=== PATIENT | female | born 1960 | race Caucasian/White ===

== ENCOUNTER 2019-03-02 15:49 | Emergency (ER) | payer OTHER, MEDICAID ==
[~2019-03-02] VITALS: Ht 170.2 cm; Wt 81.6 kg
[2019-03-02 15:49] VITALS: BP_SYST 128
--- NOTE | 2019-03-02 15:49 | NUR ---
Patient to ER bed 5 to gown for evaluation. Side rails up. Report given to KIRSTEN Simpson.
--- NOTE | 2019-03-02 15:50 | NUR ---
[facility]. Pt awake, alert, confused. Pt has been brought to [facility] for medical clearance to [facility]. Pt is ambulatory, and has purposeful movements but is extremely confused, and poses a fall risk due to unsteady gait. Pt denies chest pain, shortness of breath, nausea, vomiting, diarrhea, dizziness, blurred vision. Pt has no medical complaint a this time. Pt Resting in bed, and given blankets and pillow for comfort. Pt resting comfortably, VSS, will continue to monitor.
--- NOTE | 2019-03-02 15:50 | NUR ---
ER at bedside examining patient.
--- NOTE | 2019-03-02 16:00 | NUR ---
Phlebotomy bedside drawing blood labs via 23# butterfly catheter
[2019-03-02 16:26] LABS: BASOPHILS # (AUTO) 0.1 K/uL (0.0-0.2); BASOPHILS % (AUTO) 0.8 % (0.0-2.0); EOSINOPHILS # (AUTO) 0.2 K/uL (0.0-0.4); EOSINOPHILS % (AUTO) 2.3 % (0.0-4.0); HEMATOCRIT 27.3 % (36-48); HEMOGLOBIN 8.5 g/dL (12.0-16.0); LYMPHOCYTES # (AUTO) 2.1 K/uL (1.0-5.5); LYMPHOCYTES % (AUTO) 23.4 % (20.5-51.5); MEAN CORPUSCULAR HEMOGLOBIN 24 pg (27-31); MEAN CORPUSCULAR HGB CONC 31 % (32-36); MEAN CORPUSCULAR VOLUME 75 fL (79.0-98.0); MONOCYTES % (AUTO) 11.2 % (1.7-9.3); NEUTROPHILS # (AUTO) 5.5 K/uL (1.8-7.7); NEUTROPHILS % (AUTO) 62.3 % (40.0-70.0); PLATELET COUNT (AUTO) 266 K/uL (130-430); RED BLOOD CELL COUNT(AUTO) 3.63 MIL/uL (4.2-6.2); RED CELL DISTRIBUTION WIDTH 16.5 % (9.0-15.0); WHITE BLOOD COUNT (AUTO) 8.8 K/uL (4.8-10.8)
[2019-03-02 16:31] LABS: ANION GAP 7 (5-15); CALCIUM 8.7 mg/dL (8.4-11.0); CHLORIDE 105 mmol/L (98-107); CREATININE 1.32 mg/dL (0.55-1.30); GLUCOSE 224 mg/dL (70-99); POTASSIUM 4.2 mmol/L (3.5-5.1); SODIUM SERUM 140 mmol/L (136-145); UREA NITROGEN, BLOOD 27 mg/dL (8-21)
[2019-03-02 16:36] LABS: ALANINE AMINOTRANSFERASE 17 U/L (12-78); ALBUMIN 2.9 g/dL (3.4-4.8); ASPARTATE AMINOTRANSFERASE 15 U/L (10-37); GFR AFRICAN AMERICAN 54 mL/min (>90); TOTAL BILIRUBIN 0.2 mg/dL (0.0-1.0)
[2019-03-02 16:37] LABS: ALCOHOL, BLOOD < 3 mg/dL (<10)
--- NOTE | 2019-03-02 16:50 | NUR ---
MRSA Swab performed of Nares Bilat. pt tolerated procedure well. Sent to Lab
[2019-03-02 16:59] LABS: CHOLESTEROL 109 mg/dL (<200); HDL CHOLESTEROL 32 mg/dL (>55); LDL CHOLESTEROL 58 mg/dL (<100); TRIGLYCERIDES 109 mg/dL (30-150)
[2019-03-02 17:32] LABS: BILIRUBIN,URINE NEGATIVE (NEGATIVE); BLOOD, URINE NEGATIVE (NEGATIVE); CLARITY/URINE HAZY (CLEAR); COLOR,URINE YELLOW (YELLOW); GLUCOSE,URINE 3+ (NEGATIVE); KETONES,URINE NEGATIVE (NEGATIVE); LEUKOCYTE ESTERASE ,URINE 2+ (NEGATIVE); NITRITE, URINE NEGATIVE (NEGATIVE); PH,URINE 5.5 (5.0-8.0); PROTEIN URINE NEGATIVE (NEGATIVE); UROBILINOGEN,URINE 0.2 (0.2-1.0)
--- NOTE | 2019-03-02 17:42 | NUR ---
Patient resting quietly. No acute distress noted. will continue to monitor.
[2019-03-02 17:48] LABS: BACTERIA,URINE FEW /HPF (None Seen); MUCUS,URINE 1+ /LPF (None Seen); RBC,URINE 0-3 /HPF (0-3); WBC,URINE 50-80 /HPF (0-3); YEAST,URINE Few /HPF (None Seen)
[2019-03-02] MEDS ORDERED: cefTRIAXone 1 GM VIAL IM ONE (18:00)
--- NOTE | 2019-03-02 18:12 | NUR ---
RPatient to be transferred to [facility]. Is being transferred due to higher level of care. Receiving facility has accepting physician and available space. ER physician has signed transfer form. Patient or responsible constitution party has agreed to transfer and signed form. Patient belongings inventoried and will be sent with patient. Copy of nursing notes, lab reports, EKG, Physicians Orders and X-rays to be sent with patient. Report called to KIRSTEN WILLIAMSON at receiving facility. Receiving physician is DR. DANIEL. [facility] service has been called for transfer. ETA is 1900
[2019-03-02] MEDS ORDERED: LIDOCAINE 1%, 20 ML MDV 20 ML ONE (19:17)
--- NOTE | 2019-03-02 19:23 | NUR ---
Pt resting quietly and comfortably in bed. Pt given additional warm blanket. Pt Vss, will continue to monitor.
[2019-03-02 20:00] VITALS: BP_SYST 128
--- NOTE | 2019-03-02 20:00 | NUR ---
Patient to be transferred to [facility]. Is being transferred due to higher level of care. Receiving facility has accepting physician and available space. ER physician has signed transfer form. Patient or responsible libertarian has agreed to transfer and signed form. Patient belongings inventoried and will be sent with patient. Copy of nursing notes, lab reports, EKG, Physicians Orders and X-rays to be sent with patient. Report called to CN at receiving facility. Receiving physician is Dante. [facility] ambulance service has arrived to transport.
== END 2019-03-02 20:00 ==
LOC: SED 15:49
DX: Z02.89 Encounter for other administrative examinations (principal); N39.0 Urinary tract infection, site not specified; E11.9 Type 2 diabetes mellitus without complications; F31.9 Bipolar disorder, unspecified
CPT/HCPCS: 36415; 80053; 80061; 81000; 83036; 85025; 87086; 96372; 99285; G0482; J0696; J2001; 99283

== ENCOUNTER 2019-04-09 15:27 | Outpatient (CLI) | payer OTHER, MEDICAID | END 2019-04-09 19:28 | disposition home or self-care (01) | LOC: SLB 15:27 | PROVIDERS: ATTEND Psychiatry & Neurology Psychiatry | DX: F25.0 Schizoaffective disorder, bipolar type (principal); F03.90 Unspecified dementia, unspecified severity, without behavioral disturbance, psychotic disturbance, mood disturbance, and anxiety; E78.00 Pure hypercholesterolemia, unspecified; R45.83 Excessive crying of child, adolescent or adult; R56.9 Unspecified convulsions; T14.8XXA Other injury of unspecified body region, initial encounter; F32.9 Major depressive disorder, single episode, unspecified; R41.0 Disorientation, unspecified; W50.4XXA Accidental scratch by another person, initial encounter; Y93.9 Activity, unspecified; Y92.89 Other specified places as the place of occurrence of the external cause; Y99.8 Other external cause status | CPT/HCPCS: 36415; 82947-TC ==

== ENCOUNTER 2019-07-12 15:42 | Inpatient (IN) | payer OTHER, MEDICAID ==
[~2019-07-12] VITALS: Ht 165.1 cm; Wt 69.9 kg
[2019-07-12 15:50] VITALS: BP_SYST 122
[2019-07-12] MEDS ORDERED: ZIPRASIDONE HCL 20 MG CAPSULE (GEODON) PO ONE (16:00)
[2019-07-12] MEDS ORDERED: LEVA1.2526 INH (16:00)
[2019-07-12] MEDS ORDERED: LORazepam 2 MG/ML VIAL IM ONE (16:00)
[2019-07-12] MEDS ORDERED: LEVE500T53 GT (16:00)
[2019-07-12] MEDS ORDERED: DIPHENHYDRAMINE INJ 50 MG/ML VIAL IM ONE (16:00)
[2019-07-12] MEDS ORDERED: ACET325T53 GT (16:00)
[2019-07-12] MEDS ORDERED: ONDA4TAB5 GT (16:00)
[2019-07-12 16:28] LABS: HEMATOCRIT 34.9 % (36-48); HEMOGLOBIN 10.9 g/dL (12.0-16.0); MEAN CORPUSCULAR HEMOGLOBIN 26 pg (27-31); MEAN CORPUSCULAR HGB CONC 31 % (32-36); MEAN CORPUSCULAR VOLUME 83 fL (79.0-98.0); RED BLOOD CELL COUNT(AUTO) 4.19 MIL/uL (4.2-6.2); WHITE BLOOD COUNT (AUTO) 8.3 K/uL (4.8-10.8)
[2019-07-12 16:29] LABS: BASOPHILS % (AUTO) 0.2 % (0.0-2.0); EOSINOPHILS # (AUTO) 0.1 K/uL (0.0-0.4); EOSINOPHILS % (AUTO) 1.8 % (0.0-4.0); LYMPHOCYTES # (AUTO) 3.2 K/uL (1.0-5.5); LYMPHOCYTES % (AUTO) 38.1 % (20.5-51.5); MONOCYTES # (AUTO) 0.9 K/uL (0.0-1.0); MONOCYTES % (AUTO) 11.1 % (1.7-9.3); NEUTROPHILS # (AUTO) 4.1 K/uL (1.8-7.7); NEUTROPHILS % (AUTO) 48.8 % (40.0-70.0); PLATELET COUNT (AUTO) 210 K/uL (130-430); RED CELL DISTRIBUTION WIDTH 22.5 % (9.0-15.0)
[2019-07-12 16:44] LABS: ANION GAP 6 (5-15); CALCIUM 9.1 mg/dL (8.4-11.0); CHLORIDE 105 mmol/L (98-107); CREATININE 1.64 mg/dL (0.55-1.30); GLUCOSE 207 mg/dL (70-99); SODIUM SERUM 143 mmol/L (136-145); UREA NITROGEN, BLOOD 23 mg/dL (8-21)
[2019-07-12 16:50] LABS: GFR AFRICAN AMERICAN 42 mL/min (>90)
[2019-07-12 16:51] LABS: POTASSIUM 5.6 mmol/L (3.5-5.1)
[2019-07-12 16:52] LABS: ALANINE AMINOTRANSFERASE 25 U/L (12-78); ALBUMIN 3.4 g/dL (3.4-4.8); ASPARTATE AMINOTRANSFERASE 23 U/L (10-37); TOTAL BILIRUBIN 0.2 mg/dL (0.0-1.0)
[2019-07-12 17:48] LABS: BILIRUBIN,URINE NEGATIVE (NEGATIVE); BLOOD, URINE NEGATIVE (NEGATIVE); CLARITY/URINE CLEAR (CLEAR); COLOR,URINE YELLOW (YELLOW); GLUCOSE,URINE NEGATIVE (NEGATIVE); KETONES,URINE NEGATIVE (NEGATIVE); LEUKOCYTE ESTERASE ,URINE TRACE (NEGATIVE); NITRITE, URINE NEGATIVE (NEGATIVE); PROTEIN URINE NEGATIVE (NEGATIVE); UROBILINOGEN,URINE 0.2 (0.2-1.0)
[2019-07-12 17:57] LABS: RBC,URINE NONE SEEN /HPF (0-3)
[2019-07-12 17:58] LABS: BACTERIA,URINE FEW /HPF (None Seen); MUCUS,URINE None Seen /LPF (None Seen)
[2019-07-12] MEDS ORDERED: cefTRIAXone 1 GM VIAL IM ONE (18:30)
[2019-07-12] MEDS ORDERED: LEVOFLOXACIN 500 MG/D5W 100 ML IV ONE (18:45)
[2019-07-12] MEDS ORDERED: ASA81 GT (19:21)
[2019-07-12] MEDS ORDERED: ACET-2165 GT (19:27)
[2019-07-12] MEDS ORDERED: FAMO40OR4 GT (19:27)
[2019-07-12] MEDS ORDERED: APIX5TAB GT (19:27)
[2019-07-12] MEDS ORDERED: METO25TA6 GT (19:27)
[2019-07-12] MEDS ORDERED: ATOR20TA64 GT (19:27)
[2019-07-12] MEDS ORDERED: SERT100T GT (19:30)
[2019-07-12] MEDS ORDERED: LEVE250T2 PO (19:30)
[2019-07-12] MEDS ORDERED: INSU100V9 SQ (19:30)
[2019-07-12] MEDS ORDERED: RISP1TAB GT (19:30)
[2019-07-12 20:21] VITALS: BP_SYST 137
[2019-07-12] MEDS ORDERED: guaiFENesin 200 MG/10 ML UDC PO PRN (21:15)
[2019-07-12] MEDS ORDERED: cloNIDine HCL 0.1 MG TABLET PO PRN (21:15)
[2019-07-12] MEDS ORDERED: ONDANSETRON HCL 4 MG/2 ML VIAL IVP PRN (21:15)
[2019-07-12] MEDS ORDERED: IPRATROPIUM BROM 0.5 MG/2.5 ML VIAL.NEB (ATROVENT) INH PRN (21:15)
[2019-07-12] MEDS ORDERED: ALBUTEROL SULFATE 0.083% 2.5 MG/3 ML VIAL.NEB INH PRN (21:15)
[2019-07-12] MEDS ORDERED: NITROGLYCERIN 0.4 MG TAB.SUBL SL PRN (21:15)
[2019-07-12] MEDS ORDERED: CEFEPIME 1 GM in D5W 50 ML IV ONE (22:00)
[2019-07-13 00:01] VITALS: BP_SYST 136
[2019-07-13] MEDS ORDERED: CEFEPIME 1 GM/VIAL (MAXIPIME) ONE (00:35)
[2019-07-13] MEDS: 0.45% NACL 1,000 ML IV SCH ×3 (00:52→23:24)
[2019-07-13] MEDS: LORazepam 2 MG/ML VIAL IVP PRN ×3 (05:24→20:12)
[2019-07-13 08:00] VITALS: BP_SYST 115
[2019-07-13 08:05] LABS: ALBUMIN 2.7 g/dL (3.4-4.8); CALCIUM 8.5 mg/dL (8.4-11.0); CREATININE 0.9 mg/dL (0.55-1.30); TOTAL BILIRUBIN 0.3 mg/dL (0.0-1.0)
[2019-07-13] MEDS: INSULIN LISPRO SLIDING SCALE 100 UNITS/ML VIAL (humaLOG) SUBCUT PRN ×2 (11:28→16:53)
[2019-07-13] MEDS: SERTRALINE HCL 50 MG TABLET GT SCH ×2 (11:54→20:01)
[2019-07-13] MEDS: ASPIRIN 81 MG TAB.CHEW GT SCH (11:54)
[2019-07-13] MEDS: levETIRAcetam 500 MG TABLET PO SCH ×2 (11:54→20:01)
[2019-07-13] MEDS: ATORVASTATIN 20 MG TABLET GT SCH (11:54)
[2019-07-13] MEDS: METOPROLOL TARTRATE 25 MG TABLET GT SCH ×2 (11:55→20:04)
[2019-07-13] MEDS: risperiDONE 1 MG TABLET (RisperDAL) GT SCH ×2 (11:56→20:00)
[2019-07-13] MEDS: ACETAMINOPHEN 325 MG TABLET GT SCH (11:56)
[2019-07-13] MEDS: CEFEPIME 1 GM in D5W 50 ML IV SCH ×2 (11:59→22:07)
[2019-07-13] MEDS ORDERED: VANCOMYCIN HCL 1 GM/NS PREMIX 250 ML IV ONE (12:00)
[2019-07-13 12:24] VITALS: BP_SYST 110
[2019-07-13] MEDS: VANCOMYCIN HCL 1,500 MG in NS 250 ML IV SCH (14:15)
[2019-07-13 16:23] VITALS: BP_SYST 125
[2019-07-13] MEDS: RIVAROXABAN 10 MG TABLET PO SCH (17:09)
[2019-07-13 20:00] VITALS: BP_SYST 127
[2019-07-13] MEDS ORDERED: risperiDONE 1 MG TABLET (RisperDAL) GT SCH (21:00)
[2019-07-13 22:21] VITALS: BP_SYST 127
[2019-07-14] MEDS: LORazepam 2 MG/ML VIAL IVP PRN ×4 (04:24→22:25)
[2019-07-14 07:08] LABS: BASOPHILS % (AUTO) 0.1 % (0.0-2.0); EOSINOPHILS # (AUTO) 0.3 K/uL (0.0-0.4); EOSINOPHILS % (AUTO) 5.1 % (0.0-4.0); HEMATOCRIT 37.2 % (36-48); HEMOGLOBIN 11.8 g/dL (12.0-16.0); LYMPHOCYTES # (AUTO) 1.2 K/uL (1.0-5.5); LYMPHOCYTES % (AUTO) 22.3 % (20.5-51.5); MEAN CORPUSCULAR HEMOGLOBIN 27 pg (27-31); MEAN CORPUSCULAR HGB CONC 32 % (32-36); MEAN CORPUSCULAR VOLUME 84 fL (79.0-98.0); MONOCYTES # (AUTO) 0.5 K/uL (0.0-1.0); MONOCYTES % (AUTO) 9.9 % (1.7-9.3); NEUTROPHILS # (AUTO) 3.4 K/uL (1.8-7.7); NEUTROPHILS % (AUTO) 62.6 % (40.0-70.0); PLATELET COUNT (AUTO) 175 K/uL (130-430); RED BLOOD CELL COUNT(AUTO) 4.45 MIL/uL (4.2-6.2); RED CELL DISTRIBUTION WIDTH 22.4 % (9.0-15.0); WHITE BLOOD COUNT (AUTO) 5.5 K/uL (4.8-10.8)
[2019-07-14 07:17] LABS: ALBUMIN 2.9 g/dL (3.4-4.8); CALCIUM 8.9 mg/dL (8.4-11.0); CREATININE 0.94 mg/dL (0.55-1.30); TOTAL BILIRUBIN 0.4 mg/dL (0.0-1.0)
[2019-07-14 07:25] VITALS: BP_SYST 109
[2019-07-14] MEDS: ASPIRIN 81 MG TAB.CHEW GT SCH (08:28)
[2019-07-14] MEDS: SERTRALINE HCL 50 MG TABLET GT SCH ×2 (08:29→20:55)
[2019-07-14] MEDS: risperiDONE 1 MG TABLET (RisperDAL) GT SCH ×2 (08:29→20:56)
[2019-07-14] MEDS: ATORVASTATIN 20 MG TABLET GT SCH (08:30)
[2019-07-14] MEDS: METOPROLOL TARTRATE 25 MG TABLET GT SCH ×2 (08:30→20:56)
[2019-07-14] MEDS: levETIRAcetam 500 MG TABLET PO SCH ×2 (08:31→20:57)
[2019-07-14] MEDS: ACETAMINOPHEN 325 MG TABLET GT SCH (08:32)
[2019-07-14] MEDS: CEFEPIME 1 GM in D5W 50 ML IV SCH ×2 (10:53→20:55)
[2019-07-14 11:18] VITALS: BP_SYST 95
[2019-07-14] MEDS: INSULIN LISPRO SLIDING SCALE 100 UNITS/ML VIAL (humaLOG) SUBCUT PRN ×3 (12:12→20:57)
[2019-07-14] MEDS: VANCOMYCIN HCL 1,500 MG in NS 250 ML IV SCH (13:07)
[2019-07-14] MEDS: MUPIROCIN 2% TOPICAL OINTMENT 22 GM TP SCH ×2 (15:59→20:58)
[2019-07-14 16:16] VITALS: BP_SYST 103
[2019-07-14] MEDS: RIVAROXABAN 10 MG TABLET PO SCH (17:38)
[2019-07-14 20:00] VITALS: BP_SYST 123
[2019-07-15] VITALS: BP_SYST 117
[2019-07-15] MEDS: 0.45% NACL 1,000 ML IV SCH (02:03)
[2019-07-15] MEDS: INSULIN LISPRO SLIDING SCALE 100 UNITS/ML VIAL (humaLOG) SUBCUT PRN ×2 (05:45→11:08)
[2019-07-15] MEDS: LORazepam 2 MG/ML VIAL IVP PRN ×2 (05:46→17:34)
[2019-07-15 07:50] VITALS: BP_SYST 124
[2019-07-15] MEDS: ASPIRIN 81 MG TAB.CHEW GT SCH (08:14)
[2019-07-15] MEDS: METOPROLOL TARTRATE 25 MG TABLET GT SCH (08:14)
[2019-07-15] MEDS: ATORVASTATIN 20 MG TABLET GT SCH (08:15)
[2019-07-15] MEDS: risperiDONE 1 MG TABLET (RisperDAL) GT SCH (08:15)
[2019-07-15] MEDS: levETIRAcetam 500 MG TABLET PO SCH (08:16)
[2019-07-15] MEDS: MUPIROCIN 2% TOPICAL OINTMENT 22 GM TP SCH (08:16)
[2019-07-15] MEDS: ACETAMINOPHEN 325 MG TABLET GT SCH (08:16)
[2019-07-15] MEDS: SERTRALINE HCL 50 MG TABLET GT SCH (08:40)
[2019-07-15 08:49] VITALS: BP_SYST 124
[2019-07-15] MEDS: CEFEPIME 1 GM in D5W 50 ML IV SCH (09:48)
[2019-07-15 12:00] VITALS: BP_SYST 101
[2019-07-15] MEDS ORDERED: DEXTROSE 50%-WATER 50 ML DISP.SYRIN IVP PRN (13:45)
[2019-07-15] MEDS ORDERED: D5W 1,000 ML IV PRN (13:45)
[2019-07-15] MEDS ORDERED: GLUCOSE 15 GM GEL (in 37.5 GM TUBE) PO PRN (13:45)
[2019-07-15] MEDS: VANCOMYCIN HCL 1,500 MG in NS 250 ML IV SCH (14:16)
[2019-07-15 14:31] VITALS: BP_SYST 101
[2019-07-15 16:00] VITALS: BP_SYST 133
[2019-07-15] MEDS ORDERED: PIPERACILLIN/TAZO 4.5 GM in D5W 100 ML IV SCH (18:00)
== END 2019-07-15 18:50 | DRG 690 ==
LOC: SED 15:42 → SMU 18:44 → STU 07-13 10:54
PROVIDERS: ADMIT Internal Medicine; ATTEND Internal Medicine
DX: N39.0 Urinary tract infection, site not specified (principal); R78.81 Bacteremia; Z16.12 Extended spectrum beta lactamase (ESBL) resistance; E11.9 Type 2 diabetes mellitus without complications; D64.9 Anemia, unspecified; F03.90 Unspecified dementia, unspecified severity, without behavioral disturbance, psychotic disturbance, mood disturbance, and anxiety; E87.8 Other disorders of electrolyte and fluid balance, not elsewhere classified; B96.20 Unspecified Escherichia coli [E. coli] as the cause of diseases classified elsewhere; F31.9 Bipolar disorder, unspecified; R56.9 Unspecified convulsions; R13.10 Dysphagia, unspecified; E87.5 Hyperkalemia; E78.00 Pure hypercholesterolemia, unspecified; B96.89 Other specified bacterial agents as the cause of diseases classified elsewhere; K21.9 Gastro-esophageal reflux disease without esophagitis; I10 Essential (primary) hypertension; F25.9 Schizoaffective disorder, unspecified; Z95.0 Presence of cardiac pacemaker; Z79.01 Long term (current) use of anticoagulants; Z79.899 Other long term (current) drug therapy; Z79.82 Long term (current) use of aspirin
CPT/HCPCS: 36415; 71045; 80053; 80202-TC; 81000-TC; 82962; 83880; 84484; 85025; 86710; 87040-TC; 87081; 87086; 87186-TC; 96365; 96372; 99285; G0378; J0692; J1200; J1956; J2060; J2543; J3370; J7030; J7050; J7060

== ENCOUNTER 2020-11-01 12:51 | Emergency (ER) | payer OTHER, MEDICAID ==
[~2020-11-01] VITALS: Ht 157.5 cm; Wt 47.6 kg
[~2020-11-01 12:51] MED LIST: ACET325T GT; APIX5TAB GT; ASA81 GT; ATOR20TA64 GT; FAMO40OR4 GT; INSU100V9 SQ; LEVE250T2 PO; METO25TA6 GT; RISP1TAB45 GT; SERT100T GT
[2020-11-01] MEDS: DIPH-TET-PERTUS Vaccine 0.5 ML VIAL (ADACEL) I.M. ONE (13:07)
[2020-11-01 13:09] VITALS: BP_SYST 118
[2020-11-01 13:55] LABS: HEMOGLOBIN 11.4 g/dL (12.0-16.0); RED CELL DISTRIBUTION WIDTH 17.8 % (9.0-15.0)
[2020-11-01 14:00] LABS: BASOPHILS # (AUTO) 0.1 K/uL (0.0-0.2); BASOPHILS % (AUTO) 0.8 % (0.0-2.0); EOSINOPHILS # (AUTO) 0.3 K/uL (0.0-0.4); EOSINOPHILS % (AUTO) 4.9 % (0.0-4.0); HEMATOCRIT 35.1 % (36-48); LYMPHOCYTES % (AUTO) 28.2 % (20.5-51.5); MEAN CORPUSCULAR HEMOGLOBIN 28 pg (27-31); MEAN CORPUSCULAR HGB CONC 33 % (32-36); MEAN CORPUSCULAR VOLUME 86 fL (79.0-98.0); MONOCYTES # (AUTO) 0.8 K/uL (0.0-1.0); MONOCYTES % (AUTO) 12.1 % (1.7-9.3); NEUTROPHILS # (AUTO) 3.8 K/uL (1.8-7.7); PLATELET COUNT (AUTO) 236 K/uL (130-430); RED BLOOD CELL COUNT(AUTO) 4.06 MIL/uL (4.2-6.2)
[2020-11-01 14:08] LABS: CREATININE 0.84 mg/dL (0.55-1.30); POTASSIUM 4.7 mmol/L (3.5-5.1)
[2020-11-01 14:09] LABS: PROTHROMBIN TIME 10.5 SECS (9.5-12.5)
[2020-11-01] MEDS ORDERED: VALP500S4 PO (15:04)
[2020-11-01] MEDS ORDERED: METF1000 PO (15:04)
[2020-11-01 18:14] VITALS: BP_SYST 104
== END 2020-11-01 18:20 | disposition home or self-care (01) ==
LOC: SED 12:51
DX: S01.81XA Laceration without foreign body of other part of head, initial encounter (principal); S09.90XA Unspecified injury of head, initial encounter; F03.90 Unspecified dementia, unspecified severity, without behavioral disturbance, psychotic disturbance, mood disturbance, and anxiety; E11.9 Type 2 diabetes mellitus without complications; I10 Essential (primary) hypertension; K21.9 Gastro-esophageal reflux disease without esophagitis; Z79.84 Long term (current) use of oral hypoglycemic drugs; Z79.899 Other long term (current) drug therapy; W06.XXXA Fall from bed, initial encounter; Y93.89 Activity, other specified; Y92.89 Other specified places as the place of occurrence of the external cause; Y99.8 Other external cause status
CPT/HCPCS: 36415; 70450-TC; 71045; 72125-TC; 73521; 76376; 80048; 85025; 85610-TC; 90715; 93005; 99285

== ENCOUNTER 2020-11-03 14:56 | Inpatient (IN) | payer OTHER, MEDICAID, SELFPAY ==
[~2020-11-03] VITALS: Ht 165.1 cm; Wt 43.5 kg
[2020-11-03] VITALS (8 sets, daily range): BP systolic 93–156
[~2020-11-03 14:56] MED LIST changes: +METF1000 PO; +VALP500S4 PO
--- NOTE | 2020-11-03 15:00 | NUR ---
Patient to ER bed 1 to gown for evaluation. Side rails up.
--- NOTE | 2020-11-03 15:10 | NUR ---
PT PRESENTING WITH SUTURED LACERATION ABOVE RIGHT EYEBROW FROM PREVIOUS FALL. EDSGES APPROXIAMTED. NO SIGNS OF INFECTION NOTED
--- NOTE | 2020-11-03 15:10 | NUR ---
PT BIB AMBULANCE FROM [facility] WITH REPORT OF TAHCYCARDIA AND RESPIRATORY DISTRESS. GCS 5 UNRESPONSIVE. VITAL SIGNS STABLE TACHYPNIC RATE 40 OXYGEN SATURATION 99% 4 L NC. G-TUBE IN PLACE WITH ABDOMINAL BINDER. PACEMAKER PRESENT. PT GOWNED AND ATTACHED TO AUTO BUMPER MECHANIC.
--- NOTE | 2020-11-03 15:15 | NUR ---
ER at bedside examining patient.
--- NOTE | 2020-11-03 15:21 | NUR ---
2MG NARCAN GIVEN AND NO CHANGE IN P CONDITION
[2020-11-03] MEDS ORDERED: NALOXONE HCL 2 MG/2 ML SYR ONE (15:22)
--- NOTE | 2020-11-03 15:22 | NUR ---
X-RAY AT BEDSIDE
--- NOTE | 2020-11-03 15:25 | NUR ---
Patient transported to radiology via GURNEY, accompanied by STAFF.
[2020-11-03] MEDS ORDERED: NALOXONE HCL 2 MG/2 ML SYR IVP ONE (15:30)
[2020-11-03 15:36] LABS: BASOPHILS % (AUTO) 0.1 % (0.0-2.0); EOSINOPHILS % (AUTO) 0.1 % (0.0-4.0); HEMATOCRIT 38.2 % (36-48); HEMOGLOBIN 12.1 g/dL (12.0-16.0); LYMPHOCYTES # (AUTO) 0.9 K/uL (1.0-5.5); LYMPHOCYTES % (AUTO) 5.6 % (20.5-51.5); MEAN CORPUSCULAR HEMOGLOBIN 27 pg (27-31); MEAN CORPUSCULAR HGB CONC 32 % (32-36); MEAN CORPUSCULAR VOLUME 86 fL (79.0-98.0); MONOCYTES # (AUTO) 1.1 K/uL (0.0-1.0); MONOCYTES % (AUTO) 6.4 % (1.7-9.3); NEUTROPHILS # (AUTO) 14.5 K/uL (1.8-7.7); NEUTROPHILS % (AUTO) 87.8 % (40.0-70.0); PLATELET COUNT (AUTO) 264 K/uL (130-430); RED BLOOD CELL COUNT(AUTO) 4.43 MIL/uL (4.2-6.2); RED CELL DISTRIBUTION WIDTH 17.6 % (9.0-15.0); WHITE BLOOD COUNT (AUTO) 16.5 K/uL (4.8-10.8)
--- NOTE | 2020-11-03 15:44 | NUR ---
BACK FROM CT AND REATTACHED TO MONITORS
[2020-11-03 15:47] LABS: PROTHROMBIN TIME 10.4 SECS (9.5-12.5)
[2020-11-03 15:48] LABS: ANION GAP 9 (5-15); CALCIUM 9.3 mg/dL (8.4-11.0); CHLORIDE 99 mmol/L (98-107); CREATININE 0.87 mg/dL (0.55-1.30); GLUCOSE 177 mg/dL (70-99); POTASSIUM 4.7 mmol/L (3.5-5.1); SODIUM SERUM 139 mmol/L (136-145); UREA NITROGEN, BLOOD 30 mg/dL (8-21)
--- NOTE | 2020-11-03 16:00 | NUR ---
ELEAZAR AND MRSA COLLECTED AND SENT TO LAB
--- NOTE | 2020-11-03 16:00 | NUR ---
COVID SWAB AND MRSA SWAB COLLECTED AND SENT TO LAB FOR ANALYSIS.
[2020-11-03 16:02] LABS: ALANINE AMINOTRANSFERASE 72 U/L (12-78); ALBUMIN 3.2 g/dL (3.4-4.8); ASPARTATE AMINOTRANSFERASE 41 U/L (10-37); TOTAL BILIRUBIN 0.3 mg/dL (0.0-1.0)
[2020-11-03 16:09] LABS: ALCOHOL, BLOOD < 3 mg/dL (<10); GFR AFRICAN AMERICAN 86 mL/min (>90)
[2020-11-03 16:10] LABS: ACETAMINOPHEN < 1 ug/mL (1-30)
--- NOTE | 2020-11-03 16:10 | NUR ---
URINE COLLECTED AND BROUGHT TO LAB. TSANG CATHETER INSERTED 16FRENCH. PT TOLERATED WELL.
--- NOTE | 2020-11-03 16:11 | NUR ---
300CC CLEAR YELLOW URINE DRAINING FROM TSANG CATHETER.
[2020-11-03] MEDS ORDERED: VANCOMYCIN HCL 1,000 MG in NS 250 ML IV ONE (16:15)
[2020-11-03] MEDS ORDERED: PIPERACILLIN/TAZOBACTAM 2.25 GM in NS 50 ML IV ONE (16:15)
[2020-11-03] MEDS ORDERED: NACL 0.9% 1,000 ML IV ONE (16:15)
[2020-11-03] MEDS ORDERED: PIPERACILLIN/TAZOBACTAM 2.25 GM VIAL IV ONE (16:21)
[2020-11-03] MEDS ORDERED: VANCOMYCIN HCL 1000 MG/VIAL IV ONE (16:21)
[2020-11-03] MEDS ORDERED: FLUMAZENIL 0.1 MG/ML IVP ONE ×2 (16:37→16:45)
--- NOTE | 2020-11-03 16:43 | NUR ---
FLUMAZENIL GIVEN. NO CHANGE IN PT CONDITION
[2020-11-03 16:45] LABS: BILIRUBIN,URINE NEGATIVE (NEGATIVE); BLOOD, URINE NEGATIVE (NEGATIVE); CLARITY/URINE CLEAR (CLEAR); COLOR,URINE YELLOW (YELLOW); GLUCOSE,URINE NEGATIVE (NEGATIVE); KETONES,URINE TRACE (NEGATIVE); NITRITE, URINE NEGATIVE (NEGATIVE); PH,URINE 8.5 (5.0-8.0); PROTEIN URINE NEGATIVE (NEGATIVE)
[2020-11-03 16:46] LABS: C-REACTIVE PROTEIN QUANT 4.7 mg/dL (0-0.5)
[2020-11-03 16:51] LABS: LEUKOCYTE ESTERASE ,URINE 1+ (NEGATIVE)
[2020-11-03 16:52] LABS: BACTERIA,URINE FEW /HPF (None Seen); MUCUS,URINE None Seen /LPF (None Seen); RBC,URINE NONE SEEN /HPF (0-3)
[2020-11-03 16:56] LABS: BARBITURATE, URINE NEGATIVE (NEG <=200); BENZODIAZEPINE, URINE POSITIVE (NEG <=150); CANNABINOID, URINE NEGATIVE (NEG <=50); COCAINE, URINE NEGATIVE (NEG <=150); METHAMPHETAMINES SCREEN,URINE NEGATIVE (NEG <=500); OPIATE, URINE NEGATIVE (NEG <=100); PHENCYCLIDINE SCREEN,URINE NEGATIVE (NEG <=25); UR TRICYCLIC ANTIDEPRESSANTS POSITIVE (NEG <=300); URINE AMPHETAMINE NEGATIVE (NEG <=500); URINE METHADONE NEGATIVE (NEG <=200); URINE OXYCODONE SCREEN NEGATIVE (NEG <=100); URINE PROPOXYPHENE SCREEN NEGATIVE (NEG <=300)
[2020-11-03 17:14] LABS: VALPROIC ACID 19 ug/mL (50-100)
[2020-11-03 17:19] LABS: ACETONE, SERUM NEGATIVE (NEGATIVE)
--- NOTE | 2020-11-03 17:22 | NUR ---
called [facility] to verify pt identity. confirmed with Jackie with and Name. Jackie verified they sent the pt Soif Schwartz.
--- NOTE | 2020-11-03 17:40 | NUR ---
ADMISSION ORDERS RECEIVED FROM DR. WALKER. PT TO BE ADMITTED TO ICU FOR ALTERED MENTAL STATUS. BED ORDERED FROM ICU. PT TO TRANSFER AFTER SHIFT CHANGE.
--- NOTE | 2020-11-03 17:44 | NUR ---
Medication reconciliation completed with information provided by Myles CURTIS. Any prior medication reconciliation on file was reviewed and corrected.
--- NOTE | 2020-11-03 19:17 | NUR ---
PT RESTING IN RTUCSON ATTACHED TO NON DESTRUCTIVE TESTING SCIENTIST VSS NI DISTRESS NOTED. NO CHANGE IN PT CONDITION
[2020-11-03] MEDS: NACL 0.9% 1,000 ML IV SCH (19:26)
[2020-11-03] MEDS ORDERED: VECURONIUM BROMIDE 10 MG/VIAL (NORCURON) IVP ONE (20:00)
--- NOTE | 2020-11-03 20:08 | NUR ---
DR. JONES AND Fern. AT BEDSIDE FOR INTUBATION. PT HAS TACHYPNEA WITH A RATE OF 50"S TO 60"S WITH NO GAG REFLEX. V/S 116/74, HR 93, RESPIRATORY RATE 57, SPO2 99%. VECURONIUM 10MG IV ADMINISTERED PER DR. JONES. A 7.0 ET TUBE PLACED BY MD, PLACEMENT VERIFIED WITH COLOR CHANGE IN CAPNOGRAPHY AND EQUAL BREATH SOUNDS BILATERALLY. V/S 147/91, 98 HR, 17 RR, 98% POST INTUBATION. ET TUBE 22 AT THE LIP. PT PLACE ON AC 16, TV 350, FIO2 100%, AND PEEP OF 5. POST INTUBATION XRAY ORDERED.
[2020-11-03] MEDS ORDERED: ATROPINE SULFATE 1 MG/10 ML SYRINGE IVP ONE (20:19)
[2020-11-03] MEDS ORDERED: ATROPINE SULFATE 0.4 MG/ML VIAL ONE (20:19)
--- NOTE | 2020-11-03 20:23 | NUR ---
NG TUBE 16F INSERTED INTO LEFT NARE. PLACEMENT VERIFIED BY AUSCULTATION AND ASPIRATION OF STOMACH CONTENTS.
--- NOTE | 2020-11-03 20:25 | NUR ---
PORTABLE CXR DONE AT BEDSIDE.
--- NOTE | 2020-11-03 20:31 | NUR ---
Patient will be admitted to care of DR. WALKER. Admitted to ICU unit. Will go to room #1. Belongings list completed. Complete and up to date summary report printed. SBAR report to be given at bedside with opportunity for questions.
--- NOTE | 2020-11-03 20:32 | NUR ---
Transfer to ICU via ACLS protocol. Licensed nurse present. IV present no signs or symptoms of infiltration. R.T. transported with RN's.
--- NOTE | 2020-11-03 20:40 | NUR ---
ICU ADMIT Patient is on vent, tolerating current vent settings. IV fluids infusing to left forearm, no signs of infiltration. Zacarias catheter in place and draining to gravity. Safety precautions in place, call light within reach. Will continue to monitor.
--- NOTE | 2020-11-03 20:47 | NUR ---
ASSISTED INTUBATION BY MD JONES. 2007 INTUBATION WITH ETT 7.0/22 AT LIP LINE. CO2 DETECTOR CHANGED COLLOR YELLOW AND BILATERAL CHEST RISE,BREAST SOUNDS NOTICED. 2019 PT ON VENT SETTINGS WITH AC16, VT350, PEEP +5, FIO2 100%. SPO2 100%, HR 108.
--- NOTE | 2020-11-03 21:07 | NUR ---
TITRATED FIO2 TO 60% PER ABG RESULT, PO2 152.2 mmHg. SPO2 96%, HR 97.
--- NOTE | 2020-11-03 21:35 | NUR ---
DR. HOLLY GARCIA PAGED FOR NEW CONSULT/ORDERS. WILL AWAIT MD CALL BACK.
--- NOTE | 2020-11-03 21:37 | NUR ---
Spoke to Dr. Armida MD made aware of new ICU admit and current vent settings/post intubation ABG's. Orders given to start Diprivan, Levophed, 500 ml bolus if needed. Will input orders.
[2020-11-03] MEDS ORDERED: NS 500 ML IV ONE (21:45)
[2020-11-03] MEDS ORDERED: NOREPINEPHRINE BITARTRATE 4 MG in NS 246 ML IV PRN (21:45)
--- NOTE | 2020-11-03 21:55 | NUR ---
CONSULTATION PAGED/CALLED Reason for Consultation: PNA Person Who was Notified: LIZZIE Consulting Physician: DR. CHATMAN Associate Loan Officer Specialty: ID Ordering Physician: DR. WALKER
[2020-11-03] MEDS ORDERED: PIPERACILLIN/TAZOBACTAM 3.375 GM/VIAL (ZOSYN) IV ONE (22:00)
[2020-11-03] MEDS: IPRATROPIUM/ALBUTEROL SULFATE 3 ML AMPUL.NEB (DUONEB) INH SCH (23:32)
[2020-11-04] VITALS (30 sets, daily range): BP systolic 85–139
[2020-11-04] MEDS: PIPERACILLIN/TAZO 3.375/DEX-IS 50 ML IV SCH ×4 (00:01→23:05)
[2020-11-04] MEDS: PROPOFOL DRIP 100 ML IV PRN (01:45)
--- NOTE | 2020-11-04 03:10 | NUR ---
TITRATED FIO2 TO 50%. SPO2 99%, HR 87.
[2020-11-04] MEDS: IPRATROPIUM/ALBUTEROL SULFATE 3 ML AMPUL.NEB (DUONEB) INH SCH ×5 (04:12→23:34)
--- NOTE | 2020-11-04 05:46 | NUR ---
CONSULTATION PAGED/CALLED Reason for Consultation: ALOC Person Who was Notified: TEXTED AT [phone] Consulting Physician: DR. AGUILAR Online Editor Specialty: NEURO Ordering Physician: DR. WALKER
[2020-11-04 06:30] LABS: BASOPHILS % (AUTO) 0.2 % (0.0-2.0); EOSINOPHILS % (AUTO) 0.1 % (0.0-4.0); HEMATOCRIT 28.1 % (36-48); HEMOGLOBIN 8.9 g/dL (12.0-16.0); LYMPHOCYTES # (AUTO) 1.6 K/uL (1.0-5.5); LYMPHOCYTES % (AUTO) 8.2 % (20.5-51.5); MEAN CORPUSCULAR HEMOGLOBIN 28 pg (27-31); MEAN CORPUSCULAR HGB CONC 32 % (32-36); MEAN CORPUSCULAR VOLUME 87 fL (79.0-98.0); MONOCYTES # (AUTO) 1.1 K/uL (0.0-1.0); MONOCYTES % (AUTO) 5.7 % (1.7-9.3); NEUTROPHILS # (AUTO) 16.9 K/uL (1.8-7.7); NEUTROPHILS % (AUTO) 85.8 % (40.0-70.0); PLATELET COUNT (AUTO) 199 K/uL (130-430); RED BLOOD CELL COUNT(AUTO) 3.25 MIL/uL (4.2-6.2); RED CELL DISTRIBUTION WIDTH 17.8 % (9.0-15.0); WHITE BLOOD COUNT (AUTO) 19.7 K/uL (4.8-10.8)
[2020-11-04 06:40] LABS: ALBUMIN 2.3 g/dL (3.4-4.8); CALCIUM 8.1 mg/dL (8.4-11.0); CREATININE 0.73 mg/dL (0.55-1.30); POTASSIUM 3.8 mmol/L (3.5-5.1); TOTAL BILIRUBIN 0.3 mg/dL (0.0-1.0)
--- NOTE | 2020-11-04 06:48 | NUR ---
Nutrition Update David Scale 13 noted. Pt admitted for Altered Mental State Diet: NPO BMI: 16 kg/m2 RD to follow per nutrition care standards.
--- NOTE | 2020-11-04 07:26 | NUR ---
Closing Note Patient care endorsed to day shift RN using nursing SBAR.
--- NOTE | 2020-11-04 08:00 | NUR ---
AM ASSESSMENT. PATIENT OBTUNDED, ON PROPOFOL DRIP, MECHANICALLY INTUBATED, ORAL CARE PROVIDED, TURNED AND REPOSITIONED TO THE SIDE, PILLOW BEHIND HER FOR SUPPORT, GTUBE COVERED WITH A BINDER, NGT INTACT, TSANG CATHETER DRAINING WELL.
[2020-11-04] MEDS: NACL 0.9% 1,000 ML IV SCH ×2 (08:59→20:25)
[2020-11-04] MEDS: PANTOPRAZOLE SODIUM 40 MG/VIAL (PROTONIX) IVP SCH (09:00)
--- NOTE | 2020-11-04 09:00 | NUR ---
NURSING. NASAL SWAB DONE, FOR PCR AND SENT TO LAB. DR MEHTA ORDERED TO DISCONTINUE PROPOFOL DRIP, ORDERS CARRIED OUT., PLAN TO DO BREATHING TRIAL TODAY.
[2020-11-04] MEDS: ENOXAPARIN SODIUM 40 MG/0.4 ML SYRINGE SUBCUT SCH (09:02)
--- NOTE | 2020-11-04 09:48 | NUR ---
NEUROLOGIST DR Isela AGUILAR AT BEDSIDE, EXAMINING PT.
--- NOTE | 2020-11-04 10:25 | NUR ---
MD. DR WALKER CAME IN AND EXAMINED PATIENT.
[2020-11-04] MEDS ORDERED: ATORVASTATIN 20 MG TABLET GT ONE (11:00)
[2020-11-04] MEDS ORDERED: VECURONIUM BROMIDE 10 MG/VIAL (NORCURON) IV ONE (11:00)
[2020-11-04] MEDS ORDERED: ASPIRIN 81 MG TAB.CHEW GT ONE (11:00)
[2020-11-04] MEDS ORDERED: levETIRAcetam 500 MG TABLET PO ONE (11:00)
--- NOTE | 2020-11-04 12:35 | NUR ---
Dietitian Recommendations *Recommend: initiate EN support. Initial rate of 20ml, slowly increase by 10ml Q8H to goal rate. *Recommend: Vital AF 1.2 at 40ml/hr, FWF 150ml Q6H via GT. Provides: 1152 kcal, 72gm protein and 1379 ml fluids daily. Meets: 99% of estimated calorie needs and 106% of estimated protein needs. Please see Nutritional Assessment for details. RONIT, RD
[2020-11-04 14:12] LABS: BASOPHILS % (AUTO) 0.2 % (0.0-2.0); EOSINOPHILS # (AUTO) 0.1 K/uL (0.0-0.4); EOSINOPHILS % (AUTO) 0.3 % (0.0-4.0); HEMATOCRIT 27.8 % (36-48); HEMOGLOBIN 8.9 g/dL (12.0-16.0); LYMPHOCYTES # (AUTO) 1.7 K/uL (1.0-5.5); LYMPHOCYTES % (AUTO) 9.4 % (20.5-51.5); MEAN CORPUSCULAR HEMOGLOBIN 28 pg (27-31); MEAN CORPUSCULAR HGB CONC 32 % (32-36); MEAN CORPUSCULAR VOLUME 87 fL (79.0-98.0); MONOCYTES # (AUTO) 1.1 K/uL (0.0-1.0); MONOCYTES % (AUTO) 6.2 % (1.7-9.3); NEUTROPHILS # (AUTO) 15.1 K/uL (1.8-7.7); NEUTROPHILS % (AUTO) 83.9 % (40.0-70.0); PLATELET COUNT (AUTO) 191 K/uL (130-430); RED BLOOD CELL COUNT(AUTO) 3.22 MIL/uL (4.2-6.2); RED CELL DISTRIBUTION WIDTH 17.7 % (9.0-15.0)
--- NOTE | 2020-11-04 14:40 | NUR ---
TEST. PROJECT MANAGEMENT CONSULTANT AT BEDSIDE, EEG IN PROGRESS.
--- NOTE | 2020-11-04 14:46 | NUR ---
12:00 THROUGH 12:07 CPAP 5 PS 10. PT APNEIC. DID NOT COBY. CPAP. PLACED BACK TO PREVIOUS SETTINGS. RN AWARE. Addendum: 11/04/20 at 1449 by Mita Cruz RT Amended: Links added.
--- NOTE | 2020-11-04 19:25 | NUR ---
OPENING NOTE Received SBAR report from off coming RN for continuity of care. Pt laying in bed with eyes closed, intubated and sedated. No s/s of distress noted. Tube feeding infusing continuously through G tube. bed locked and in lowest position, safety precautions in place.
[2020-11-04] MEDS: METOPROLOL TARTRATE 25 MG TABLET GT SCH (19:58)
[2020-11-04] MEDS: levETIRAcetam 500 MG TABLET PO SCH (19:58)
--- NOTE | 2020-11-04 20:20 | NUR ---
Pt laying in bed with eyes open and attempting to pull lines and ET tube. Pt able to move all extremities spontaneously. Pt unable to follow commands. Reoriented pt and turned on Diprivan gtt for sedation per orders. Pt continues to remain agitated, will titrate gtt according to orders. Pt remains on ventilator with oxygen saturations above 90%. Provided PO care and suctioning. Pt tolerated well. G tube in place, checked residuals, tube feeding in place and infusing. Zacarias catheter draining to gravity. Turned and repositioned. Bed locked and in lowest position, safety precautions in place.
--- NOTE | 2020-11-04 20:29 | NUR ---
PAGED FOR ORDERS DIALED: [phone] SPOKE TO: LEOBARDO
--- NOTE | 2020-11-04 20:43 | NUR ---
Spoke with Dr. Hayes in regards to pt being agitated and attempting to remove lines and ETT tube. Orders received.
[2020-11-04] MEDS ORDERED: GLUCOSE (DEXTROSE) ORAL GEL -Adults PO PRN (20:45)
[2020-11-04] MEDS ORDERED: D5W 1,000 ML IV PRN (20:45)
[2020-11-04] MEDS ORDERED: DEXTROSE 50% JECT 50 ML DISP.SYRIN IVP PRN (20:45)
[2020-11-04] MEDS: INSULIN REGULAR, HUMAN 100 UNITS/ML, 10 ML VIAL (humuLIN R) SUBCUT PRN (23:18)
[2020-11-05] VITALS (32 sets, daily range): BP systolic 87–130
[2020-11-05] MEDS: LORazepam 2 MG/ML VIAL IVP PRN ×2 (03:19→17:07)
[2020-11-05] MEDS: IPRATROPIUM/ALBUTEROL SULFATE 3 ML AMPUL.NEB (DUONEB) INH SCH ×6 (03:48→23:27)
--- NOTE | 2020-11-05 04:15 | NUR ---
Full bed bath and CHG provided, pt tolerated well. Full linen change done.
[2020-11-05 06:26] LABS: BASOPHILS % (AUTO) 0.3 % (0.0-2.0); EOSINOPHILS # (AUTO) 0.2 K/uL (0.0-0.4); HEMATOCRIT 26.3 % (36-48); HEMOGLOBIN 8.2 g/dL (12.0-16.0); LYMPHOCYTES # (AUTO) 1.8 K/uL (1.0-5.5); LYMPHOCYTES % (AUTO) 14.7 % (20.5-51.5); MEAN CORPUSCULAR HEMOGLOBIN 27 pg (27-31); MEAN CORPUSCULAR HGB CONC 31 % (32-36); MEAN CORPUSCULAR VOLUME 88 fL (79.0-98.0); PLATELET COUNT (AUTO) 166 K/uL (130-430); RED BLOOD CELL COUNT(AUTO) 2.98 MIL/uL (4.2-6.2); RED CELL DISTRIBUTION WIDTH 17.8 % (9.0-15.0)
[2020-11-05 06:47] LABS: ALBUMIN 1.9 g/dL (3.4-4.8); CALCIUM 7.8 mg/dL (8.4-11.0); CREATININE 0.7 mg/dL (0.55-1.30); POTASSIUM 3.3 mmol/L (3.5-5.1); TOTAL BILIRUBIN 0.2 mg/dL (0.0-1.0)
--- NOTE | 2020-11-05 07:08 | NUR ---
CLOSING NOTE Endorsed SBAR report to oncoming RN for continuity of care.
--- NOTE | 2020-11-05 07:45 | NUR ---
AM NOTES: PATIENT OBTUNDED, ON PROPOFOL DRIP, MECHANICALLY INTUBATED, ORAL CARE PROVIDED, TURNED AND REPOSITIONED TO THE SIDE WITH PILLOW SUPPORT, G-TUBE COVERED WITH 4x4 DRESSING. TSANG CATHETER DRAINING WELL.
--- NOTE | 2020-11-05 08:00 | NUR ---
PULMO CONSULT; SEEN AND EXAMINE BY DR. MEHTA, UPDATED PATIENT CURRENT CONDITION. NEW ORDER RECEIVED, MD CHANGE SETTING OF VENT DECREASE AC TO 12. DIPRIVAN TITRATE TO 10MCG/KG/MIN.WITNESSED BY COSTA CURTIS.
[2020-11-05] MEDS: ASPIRIN 81 MG TAB.CHEW GT SCH (08:14)
[2020-11-05] MEDS: PIPERACILLIN/TAZO 3.375/DEX-IS 50 ML IV SCH ×3 (08:14→23:30)
[2020-11-05] MEDS: ATORVASTATIN 20 MG TABLET GT SCH (08:14)
[2020-11-05] MEDS: levETIRAcetam 500 MG TABLET PO SCH ×2 (08:14→21:30)
[2020-11-05] MEDS: METOPROLOL TARTRATE 25 MG TABLET GT SCH ×2 (08:15→21:31)
[2020-11-05] MEDS: ENOXAPARIN SODIUM 40 MG/0.4 ML SYRINGE SUBCUT SCH (08:16)
[2020-11-05] MEDS ORDERED: POTASSIUM CHLORIDE 20 MEQ/PKT PACKET PO ONE (08:45)
[2020-11-05] MEDS: PANTOPRAZOLE SODIUM 40 MG/VIAL (PROTONIX) IVP SCH (09:23)
[2020-11-05] MEDS: ACETAMINOPHEN 325 MG TABLET GT SCH (09:24)
[2020-11-05] MEDS: NACL 0.9% 1,000 ML IV SCH ×2 (09:45→17:07)
--- NOTE | 2020-11-05 13:10 | NUR ---
WOUND EVALUATION: Late note for 11/05/2020 at 1310 secondary to patient care. Wound Consult received from Dr. Hayes. Thank you, Dr. Hayes, for the consult. Patient received in a [facility] Bed with an IsoFlex CHINO mattress with low air loss therapy initiated, lethargic, sedated, and intubated. Patient is unable to turn in bed independently. David Score is a 14. Past Medical History: Diabetes Mellitus, Seizure disorder, Hypertension, A-Fib, Hyperlipidemia, GERD, Cardiomyopathy status post defibrillator COPD, Dementia, Bipolar disorder, Paranoid Schizophrenia, Depression. Recent Labs: WBC 12.0, RBC 2.98, hemoglobin 8.2, hematocrit 26.3, potassium 3.3, chloride 109, glucose 135, POC glucose 152, calcium 7.8, AST 76, albumin 1.9, PTT 23.2. Microbiology: Blood culture results x2 in progress. Intrinsic factors that delay wound healing: Diabetes Mellitus, COPD, severe Hypoalbuminemia, Hyperglycemia. Extrinsic factors that delay wound healing: Immobility. Wound Assessment: 1. Left Anterior Lateral Forehead: Laceration, present on admission. Wound bed has 90% red tissue, 10% yellow tissue. No odor, scant sanguineous drainage. Periwound intact. Laceration measures 0.7 cm x 2.9 cm. Recommend: Cleanse wound with normal saline. Place moisture barrier cream onto davina-wound. Cover with foam dressing. Perform wound care daily, and as needed for dressing soiling or dislodgement. 2. Left Heel: Blanchable redness. 3. Right Heel: Blanchable redness. Recommend: Elevate, offload and float bilateral heels with one pillow lengthwise under each extremity at all times. May cover sites with foam dressings for protection, with daily dressing changes and as needed for dressing soiling or dislodgment. Assess feels every shift. Also recommend: Reposition patient every 2 hours with pillow support and off-load pressure areas with pillows for pressure re-distribution. Offload, elevate and float bilateral heels with pillows. Perform skin care and monitor skin integrity Q shift. Use moisture barrier cream on buttocks and other moisture susceptible areas QID and as needed for soiling. Place patient on a low air-loss mattress.
--- NOTE | 2020-11-05 13:30 | NUR ---
ID CONSULT: SEEN BY DR. CHATMAN, UPDATED ABOUT THE CURRENT CONDITION AND LAB RESULT. STATED ALREADY TAKING CARE.
--- NOTE | 2020-11-05 15:00 | NUR ---
COVID 19 PCR RESULT NEGATIVE, PER DR MEHTA D/C ISOLATION PRECAUTION.
--- NOTE | 2020-11-05 16:00 | NUR ---
DIPRIVAN DRIP TITRATE TO 5 MCG/KG/MIN. WITNESSED BY REJI CURTIS.
[2020-11-05] MEDS: INSULIN REGULAR, HUMAN 100 UNITS/ML, 10 ML VIAL (humuLIN R) SUBCUT PRN ×2 (17:20→23:32)
--- NOTE | 2020-11-05 18:37 | NUR ---
patient agitated titrate diprivan drip 10mcg/kg/min. witnessed by Elmer Schwartz RN.
--- NOTE | 2020-11-05 18:43 | NUR ---
ALL NEEDS METS. VITAL SIGN STABLE, AFEBRILE. NO S/S OF DISTRESS. IVF AND DIPRIVAN INFUSING, SITE PATENT. NO SWELLING OR INFILTRATION NOTED. G-TUBE FEEDING TOLERATED WELL. [facility] VENTILATOR.
--- NOTE | 2020-11-05 19:10 | NUR ---
REPORT RECEIVED FROM DAY SHIFT NURSE. PT IS TOLERATING VENT SETTINGS AND GT FEEDING WELL. SKIN IS WARM AND DRY TO TOUCH. NO SIGNS OR SYMPTOMS OF HYPOGLYCEMIA OR HYPERGLYCEMIA NOTED. BILATERAL SOFT WRIST RESTRAINTS ARE IN PLACE AND NO CIRCULATORY IMPAIRMENT NOTED.
--- NOTE | 2020-11-05 23:32 | NUR ---
ACCUCHECK 156 AND 2 UNITS REGULAR INSULIN GIVEN SQ. SKIN REMAINS WARM AND DRY TO TOUCH. G TUBE FEEDING AND IVF ARE INFUSING WELL.
[2020-11-06] VITALS (35 sets, daily range): BP systolic 96–144
--- NOTE | 2020-11-06 02:15 | NUR ---
This nurse witnessed Diprivan drip being titrated from 10 mcg/kg/min to 15 mcg/kg/min.
--- NOTE | 2020-11-06 02:30 | NUR ---
This nurse witnessed Diprivan drip being titrated from 15 mcg/kg/min to 20 mcg/kg/min.
--- NOTE | 2020-11-06 03:00 | NUR ---
DIPRIVAN TITRATED TO 25MCG/KG/MIN.
[2020-11-06] MEDS: PROPOFOL DRIP 100 ML IV PRN (03:08)
--- NOTE | 2020-11-06 03:30 | NUR ---
DIPRIVAN DRIP TITRATED TO 30MCG/KG/MIN.
[2020-11-06] MEDS: IPRATROPIUM/ALBUTEROL SULFATE 3 ML AMPUL.NEB (DUONEB) INH SCH ×6 (03:43→23:06)
--- NOTE | 2020-11-06 05:09 | NUR ---
ACCUCHECK 129 AND NO INSULIN COVERAGE NEEDED. SKIN REMAINS WARM AND DRY TO TOUCH. G TUBE FEEDING AND IVF ARE INFUSING WELL.
--- NOTE | 2020-11-06 06:59 | NUR ---
ALL PT'S NEEDS WERE ATTENDED TO. FREQUENT ORAL SUCTIONING DONE. WILL ENDORSE TO DAY SHIFT NURSE.
[2020-11-06] MEDS: NACL 0.9% 1,000 ML IV SCH ×2 (07:16→21:02)
--- NOTE | 2020-11-06 07:40 | NUR ---
OPENING NOTES PT RESTING IN BED, CHEST RISE AND FALL NOTED. PT ON DIPRIVAN 30MCG/KG/MIN AND FLUIDS RUNNING ORDERED. IV LINE INTACT AND PATENT, NO SIGNS OF INFILTRATION NOTED. SOFT BILATERAL WRIST RESTRAINTS IN PLACE, NPO SIGNS OF INJURY NOTED. G-TUBE FEEDING INTACT AND RUNNING, NO RESIDUAL NOTED. NO ACUTE DISTRESS NOTED. PT ON VENT AC 12, TV 350, FIO2 50%, PEEP 5, TOLERATING WELL. ALL NEEDS MET. CALL LIGHT IN REACH. FALL AND ASPIRATION PRECAUTIONS IN PLACE.
--- NOTE | 2020-11-06 07:50 | NUR ---
RT NOTES FIO2 to 0.40 per titration. Will monitor pt. Rn made aware.
--- NOTE | 2020-11-06 08:30 | NUR ---
RECEIVED ORDERS FROM DR. MEHTA TO HOLD JEUSSRIBRYAN FOR CPAP TRIAL, VERIFIED, AND CARRIED OUT.
[2020-11-06] MEDS: PIPERACILLIN/TAZO 3.375/DEX-IS 50 ML IV SCH ×3 (08:40→23:40)
[2020-11-06] MEDS: PANTOPRAZOLE SODIUM 40 MG/VIAL (PROTONIX) IVP SCH (08:40)
[2020-11-06] MEDS: ACETAMINOPHEN 325 MG TABLET GT SCH (08:41)
[2020-11-06] MEDS: ASPIRIN 81 MG TAB.CHEW GT SCH (08:41)
[2020-11-06] MEDS: ATORVASTATIN 20 MG TABLET GT SCH (08:41)
[2020-11-06] MEDS: ENOXAPARIN SODIUM 40 MG/0.4 ML SYRINGE SUBCUT SCH (08:42)
[2020-11-06] MEDS: METOPROLOL TARTRATE 25 MG TABLET GT SCH ×2 (08:42→20:11)
[2020-11-06] MEDS: levETIRAcetam 500 MG TABLET PO SCH ×2 (08:42→20:11)
--- NOTE | 2020-11-06 09:25 | NUR ---
RT NOTES Pt remains unresponsive for CPAP trial despite sedation being on hold.
[2020-11-06] MEDS: INSULIN REGULAR, HUMAN 100 UNITS/ML, 10 ML VIAL (humuLIN R) SUBCUT PRN ×2 (11:20→17:58)
--- NOTE | 2020-11-06 11:25 | NUR ---
RT NOTES Pt is awake, follows simple command. Vent to CPAP 5 PS 10. No adverse reactions noted. Will monitor pt. RN made aware. exhaled CO2 39-41
--- NOTE | 2020-11-06 11:26 | NUR ---
PT STARTED ON CPAP AT THIS TIME
[2020-11-06] MEDS: LORazepam 2 MG/ML VIAL IVP PRN (12:09)
--- NOTE | 2020-11-06 12:45 | NUR ---
RT NOTES Vent settings back to AC per SBT trial for 1 hour. Pt. tolerated CPAP well, no distress noted, occasional low spontaneous breath noted but able to maintain appropriate ventilation w/ exhaled CO2 40.
--- NOTE | 2020-11-06 19:04 | NUR ---
CLOSING NOTES PT RESTING IN BED, CHEST RISE AND FALL NOTED. PT ON DIPRIVAN 15MCG/KG/MIN AND FLUIDS RUNNING ORDERED. IV LINE INTACT AND PATENT, NO SIGNS OF INFILTRATION NOTED. SOFT BILATERAL WRIST RESTRAINTS IN PLACE, NO SIGNS OF INJURY NOTED. G-TUBE FEEDING INTACT AND RUNNING, NO RESIDUAL NOTED. NO ACUTE DISTRESS NOTED. PT ON VENT AC 12, TV 350, FIO2 50%, PEEP 5, TOLERATING WELL. ALL NEEDS MET. CALL LIGHT IN REACH. FALL AND ASPIRATION PRECAUTIONS IN PLACE. WILL ENDORSE TO NOC NURSE
--- NOTE | 2020-11-06 19:15 | NUR ---
change of shift.pt.presents ett#7.0@23cm lipline.pt.presents g-tube:g-tube feed vital:1.2 administered@rate;40ml/hr. pt.presents peripheral iv acce access x2 location;lt.antecubital/lt.forearm intact.iv fluids;ns@75ml/hr.diprivan drip;conc; rate;15mcq/kg/min rate=3.8ml/hr.vent settings;tv;450,fio2%=40%,a/c;12,peep;5,02-sat%=100%. pt.presents gipson cath.pt.presents restraints wrist bilateral in palce.call light w/in access of the pt.
--- NOTE | 2020-11-06 20:00 | NUR ---
pt.assessed.v/s assessed values wnl.ett intact i have attended to the oral care/suction.g-tube intact g-tube feed infusing. gipson cath intact urine content present.iv access x2 intact iv fluids/diprivan drip infusing;per protocol note loc.restraints in place skin/circulation wnl. per flacc pain mgx pt.absent facial grimaces/body posturing.generl status stable.respiratory status stable. 02-sat%=100% call light placed w/in access of the pt.
--- NOTE | 2020-11-06 21:00 | NUR ---
2100pmedications adminstered via the g-tube.g-tube intact flushed w/out resistance.per flacc pain mgx pt.absent facial grimaces/body posturing.call light w/in access of the pt.
--- NOTE | 2020-11-06 22:00 | NUR ---
pt.assessed.v/s assessed values w/in normal limits.ett intact i have attended to the oral care/suction.iv access x2 intact iv fluids/ diprivan drip infusing.per protocol note loc.g-tube intact g-tube feed infusing.gipson cath intact urine content present.per flacc pain mgx pt. absent facial grimaces/body posturing.pt.assessed for cleanLInESS.PT.ClEaNED/REpoSiTiONED.GENeRal STatuS STablE.ReSPiratoRY STatuS STablE;O2-Sat%=100%.restraints wrist bilateral in place skin/circulation wnl.CALL LIGHT PlACEd W/in access of the pt.
[2020-11-07] VITALS (29 sets, daily range): BP systolic 90–145
--- NOTE | 2020-11-07 | NUR ---
pt.assessed.v/s assessed values wnl.ett intact.i have attended to the oral care/suction.g-tube intact g-tube feed infusing.iv access intact iv fluids/diprivan drip infusing.note loc.gipson cath intact urine content present.restraints wrist bilateral in place skin/circulation wnl.pt.assessed for cleanliness.pt,repositioned.general status stable.respiratory status stable:02-sat%=100%. per flacc pain mgx pt.absent facial grimaces/body posturing.i have administered the h2-0 g-tube flush w/out resistance.blood glucose assessed value:150mg/dl.no insulin administered per the sliding scale parameters.call light placed w/in access of the pt.
--- NOTE | 2020-11-07 02:00 | NUR ---
pt.assessed.v/s assessed values wnl.ett/intact.i have attended to the oral care/suction.g-tube intact g-tube feed infusing. iv access intact x2 iv fluids/diprivan drip infusing:note loc.gipson cath intact urine content present.restraints wrist bilateral in place:skin/circulation wnl.pt.assessed for cleanliness.pt.cleaned/repositioned.general status stable.respiratory status stable;o2-sat%=99%.per flacc pain mgx pt.absent facial grimaces/body posturing.call light placed w/in access of the pt.
[2020-11-07] MEDS: PROPOFOL DRIP 100 ML IV PRN (03:11)
[2020-11-07] MEDS: IPRATROPIUM/ALBUTEROL SULFATE 3 ML AMPUL.NEB (DUONEB) INH SCH ×6 (03:40→23:05)
--- NOTE | 2020-11-07 04:00 | NUR ---
pt.assessed.v/s assessed values wnl.ett intact.i have attended to the oral care/suction.g-tube intact g-tube feed infusing.iv access x2 intact;iv fluids/diprivan drip infusing.note loc.gipson cath intact urine content present.pt.assessed for cleanliness.pt.cleaned/repositioned. general status stable.respiratory status stable;02-sat%=100%.i have attended to the wound care dsg changes;g-tube dsg changed.i have noted skin issue;back/chest;petechiae.i have photoed the skin:order palced for arminda;rn to assess the pt. per flacc pain mgx pt.absent facial grimaces/body posturing.restraints in place wrist bilateral skin/circulation wnl.call light place w/in access of the pt.
[2020-11-07] MEDS: INSULIN REGULAR, HUMAN 100 UNITS/ML, 10 ML VIAL (humuLIN R) SUBCUT PRN ×2 (05:30→17:58)
--- NOTE | 2020-11-07 06:30 | NUR ---
PT.ASSESSED.V/S ASSESSED VALUES WNL.ETT INTACT I HAVE ATTENDED TO THE ORAL CARE/SUCTION.G-TUBE INTACT G-TUBE FEED INFUSING.IV ACCESS X2 INTACT IV FLUIDS INFUSING.DIPRIVAN DRIP INFUSING.NOTE LOC.I HAVE INCREASED THE DIPRIVAN CONC RATE:20MEQ/KG/MIN=5ML/HR.TSANG CATH INTACT URINE CONTENT PRESENT.I NOTED THE HGB PRESENTED LOW STATUS POST 3-DAYS [facility].I APPRISED DESIRAE:RN/CHR.BEL GODINEZ HAS ORDER TO TRANSFER THE PT.NOTE PER .DENNIS NOTED THE LOW HGB STATUS.PER FLACC PAIN MGX PT.ABSENT FACIAL GRIMACES/BODY POSTURING.PT.ASSESSED FOR CLEANLINESS.PT.REPOSITIONED.GENERAL STATUS SATBLE.RESPIRATORY STATUS STABLE;O2-SAT%=100%RESTRAINTS IN PLACE.SKIN/CIRCULATION WNL.CALL LIGHT PLACED W/IN ACCESS OF THE PT. Addendum: 11/07/20 at 0744 by Silverio Rivers RN blood glucose assessed value;166mg/dl.i have administered insulin;regular:2-units molly has co-signed.
[2020-11-07 06:39] LABS: BASOPHILS % (AUTO) 0.3 % (0.0-2.0); EOSINOPHILS # (AUTO) 0.4 K/uL (0.0-0.4); EOSINOPHILS % (AUTO) 5.3 % (0.0-4.0); HEMATOCRIT 27.4 % (36-48); HEMOGLOBIN 8.7 g/dL (12.0-16.0); LYMPHOCYTES # (AUTO) 1.6 K/uL (1.0-5.5); LYMPHOCYTES % (AUTO) 21.1 % (20.5-51.5); MEAN CORPUSCULAR HEMOGLOBIN 28 pg (27-31); MEAN CORPUSCULAR HGB CONC 32 % (32-36); MEAN CORPUSCULAR VOLUME 87 fL (79.0-98.0); MONOCYTES # (AUTO) 0.7 K/uL (0.0-1.0); MONOCYTES % (AUTO) 8.6 % (1.7-9.3); NEUTROPHILS % (AUTO) 64.7 % (40.0-70.0); PLATELET COUNT (AUTO) 246 K/uL (130-430); RED BLOOD CELL COUNT(AUTO) 3.14 MIL/uL (4.2-6.2); RED CELL DISTRIBUTION WIDTH 17.1 % (9.0-15.0); WHITE BLOOD COUNT (AUTO) 7.8 K/uL (4.8-10.8)
[2020-11-07 07:23] LABS: ALBUMIN 1.9 g/dL (3.4-4.8); CALCIUM 7.9 mg/dL (8.4-11.0); CREATININE 0.47 mg/dL (0.55-1.30); POTASSIUM 3.6 mmol/L (3.5-5.1); TOTAL BILIRUBIN 0.1 mg/dL (0.0-1.0)
--- NOTE | 2020-11-07 07:30 | NUR ---
AM ASSESSMENT. PT MECHANICALLY INTUBATED, ORAL CARE DONE, DIPRIVAN DRIP OFF, FOR BREATHING TRIAL, REPOSITIONED IN BED, TO HER SIDE, HEAD OF BED ELEVATED, ABDOMEN SOFT, GTUBE INTACT, FEEDING AT 40 ML PER HR, DRY SCABS/RASHES SEEN ON THE ABDOMEN AND BACK.
--- NOTE | 2020-11-07 08:00 | NUR ---
RT NOTES Pt's sedation on hold, follows simple command. Per SBT, vent to CPAP 5 PS 10. No adverse reactions noted. Will monitor pt. Rn aware.
[2020-11-07] MEDS: ACETAMINOPHEN 325 MG TABLET GT SCH (08:14)
[2020-11-07] MEDS: levETIRAcetam 500 MG TABLET PO SCH ×2 (08:14→20:37)
[2020-11-07] MEDS: PIPERACILLIN/TAZO 3.375/DEX-IS 50 ML IV SCH ×3 (08:14→23:43)
[2020-11-07] MEDS: ASPIRIN 81 MG TAB.CHEW GT SCH (08:14)
[2020-11-07] MEDS: ATORVASTATIN 20 MG TABLET GT SCH (08:14)
[2020-11-07] MEDS: METOPROLOL TARTRATE 25 MG TABLET GT SCH ×2 (08:15→20:37)
[2020-11-07] MEDS: PANTOPRAZOLE SODIUM 40 MG/VIAL (PROTONIX) IVP SCH (08:15)
[2020-11-07] MEDS: ENOXAPARIN SODIUM 40 MG/0.4 ML SYRINGE SUBCUT SCH (08:16)
--- NOTE | 2020-11-07 10:13 | NUR ---
WOUND EVALUATION: Late note for 11/07/2020 at 1013 secondary to patient care. Wound Consult received from Dr. Hayes for a rash. Thank you, Dr. Hayes, for the consult. Patient received in a [facility] with an IsoFlex CHINO mattress with low air loss therapy initiated, lethargic, sedated, and intubated. Patient is unable to turn in bed independently. David Score is a 14. Past Medical History: Diabetes Mellitus, Seizure disorder, Hypertension, A-Fib, Hyperlipidemia, GERD, Cardiomyopathy status post defibrillator COPD, Dementia, Bipolar disorder, Paranoid Schizophrenia, Depression. Recent Labs: WBC 7.8, RBC 3.14, hemoglobin 8.7, hematocrit 27.4, Na 148, potassium 3.6, chloride 114, glucose 173, POC glucose 166, calcium 7.9, AST 59, ALT 80, albumin 1.9, PTT 23.2. Microbiology: Blood culture results x2 in progress. Intrinsic factors that delay wound healing: Diabetes Mellitus, COPD, severe Hypoalbuminemia, Hyperglycemia. Extrinsic factors that delay wound healing: Immobility. Wound Assessment: 1. Left Anterior Lateral Forehead: Laceration, present on admission. Dressing is clean, dry and intact. Recommend continue: Cleanse wound with normal saline. Place moisture barrier cream onto davina-wound. Cover with foam dressing. Perform wound care daily, and as needed for dressing soiling or dislodgement. 2. Left Heel: Blanchable redness. 3. Right Heel: Blanchable redness. Recommend continue: Elevate, offload and float bilateral heels with one pillow lengthwise under each extremity at all times. May cover sites with foam dressings for protection, with daily dressing changes and as needed for dressing soiling or dislodgment. Assess feels every shift. 4. General Body: Trunk and bilateral lower extremities have a generalized maculopapular rash. No erythema, weeping or drainage. Recommend: Keep skin clean and dry at all times. Remove excess linen from the bed and use draw sheet and doug only. Ask attending or ID physician to assess and give orders. Recommend non-drowsy antihistamine. Also recommend continue: Reposition patient every 2 hours with pillow support and off-load pressure areas with pillows for pressure re-distribution. Offload, elevate and float bilateral heels with pillows. Perform skin care and monitor skin integrity Q shift. Use moisture barrier cream on buttocks and other moisture susceptible areas QID and as needed for soiling. Place patient on a low air-loss mattress.
[2020-11-07] MEDS: NACL 0.9% 1,000 ML IV SCH (10:53)
--- NOTE | 2020-11-07 11:05 | NUR ---
RT NOTES Per order, pt was extubated, will be placed on NC after HHN tx. No distress noted.
--- NOTE | 2020-11-07 13:40 | NUR ---
BREATHING PT CONGESTED, AND AGITATED, SWINGING HER LEGS UP IN AIR, REPOSITIONED PT IN BED OFTEN NEEDED, R.T AT BEDSIDE, SUCTIONED PT VIA NASAL CATHETER, WITH LARGE AMOUNT OF PINKISH PHLEGM, PT TOLERATED WELL, SATURATION RANGING BETWEEN 94% TO 97%.
--- NOTE | 2020-11-07 13:40 | NUR ---
RT NOTES Sterile NTS well tolerated. Sxn moderate amount of pale yellow, bloody secretions.
--- NOTE | 2020-11-07 14:00 | NUR ---
Nutrition F/U RD reviewed pt's current EMR record including diet Hx, physician notes, nursing notes, pertinent labs/meds/procedures, care trends, and care activity. Admission Dx: Altered Mental Status Pt w/: altered level of consciousness, Possibly aspiration pneumonia, Leukocytosis, Underlying history of schizophrenia, Septicemia, most likely 2/2 aspiration pneumonia, Acute exacerbation of COPD per Pulmonary Consult notes. PMH: History of Psych problems, DM, Dementia, GERD, COPD, Seizure, Bipolar disorder, Paranoid schizophrenia, Depression, Cardiomyopathy, Dyslipidemia. SARS-CoV-2 Ag Rapid 11/03 Negative Current Diet Order/Nutrition Support: Vital AF 1.2 at 40 ml/hr, Free Water Flush: 150 ML Q6H via GT x3 days Subjective Info: RD visited pt at bedside, appeared confused/disoriented/aphasic. Per EMR review, pt was extubated this morning and sedation has been on hold since this morning as well. RN was on lunch break during RD rounds. TF Intakes: 480 ml 7/1; TF Rate: 40 ml 7/1; GRV: 0 ml 7/1; abd is soft and non-distended w/ active bowel sounds. Pt is likely meeting nutritional needs at this time. Pertinent Medications: lopressor, liptor, SSI, protonix IV, lovenox Pertinent Labs: Na 148 H, K 3.6 WNL, BG 173 H, BUN 12 WNL, CRE 0.47 L, WBC 7.8 WNL Ht: 5'5"/65" Wt: 96#/44 kg (11/04) -- stable Body Mass Index: 15.97 kg/m2 %IBW: 77 [place]/Adjusted Body Weight: 125#/ 57kg Skin Integrity Comment: David scale: 11; per Academic Affairs Director note 11/05: 1. Left Anterior Lateral Forehead: Laceration, present on admission. 2. Left Heel: Blanchable redness. 3. Right Heel: Blanchable redness. NEW Estimated Energy Expenditure (kcals/day) 6756-3128 kcal/day (25-30 kcal/kg IBW for wt gain promotion) Estimated Protein Required (g/day) 68gm (1.2 gm/kg IBW for wt gain promotion) Estimated Fluid Required (l/day) 1.4-1.7 L/day (25-30ml/kg IBW for Geriatric maintenance) Problem/Etiology/Signs/Symptoms Predicted suboptimal nutrient intake r/t current diet order AEB NPO status and a/w initiation of EN support. *ongoing Altered nutrition related labs r/t pathophysiological factors AEB elevated BG, infection and possible medication interaction. *ongoing Expected Outcomes/Goals Monitor initiation of EN support and intake w/ goal of pt meeting more than 80% of estimated nutritional needs, labs trending WNL, normal GI function, skin integrity/wt maintenance. Dietitian Recommendations * Recommend continuing Vital AF 1.2 at 40 ml/hr, Free Water Flush: 150 ml Q6H via GT Provides: 1152 kcal/day, 72 gm protein/day, and 1379 ml free water/day Meets: 81% of estimated caloric needs and 106% of estimated protein needs Follow Up High Risk: F/U in 2-3 days
--- NOTE | 2020-11-07 14:05 | NUR ---
Dietitian Recommendations * Recommend continuing Vital AF 1.2 at 40 ml/hr, Free Water Flush: 150 ml Q6H via GT Provides: 1152 kcal/day, 72 gm protein/day, and 1379 ml free water/day Meets: 81% of estimated caloric needs and 106% of estimated protein needs LP, RD Please refer to Nutrition F/U for details.
--- NOTE | 2020-11-07 14:48 | NUR ---
Patient is not a candidate for [facility]
--- NOTE | 2020-11-07 15:00 | NUR ---
BREATHING. SUCTIONED PT THRU NASAL PASSAGES AND MOUTH, HAD MODERATE PALE PINK SECRETIONS.
--- NOTE | 2020-11-07 19:15 | NUR ---
Pt report received. Pt alert, confused, non-verbal. O2 at 2 LPM/NC, VSS, NAD. PIV 20 GA to LFA and 18 GA LAC patent, secure, no s/s infiltration. NS infusing at 75 mL/hr. G-tube patent, secure with Vital A/F 1.2 at 40 mL/hr, no residual noted. F/C secure with yellow and sedimented urine to bag. Dsg to Right brow c/d/i, rashes to chest and back.
--- NOTE | 2020-11-07 20:00 | NUR ---
Dr. Hayes present to bedside. Order received to renew bilat soft wrist restraints. Soft wrist restraints in place.
[2020-11-07] MEDS: LORazepam 2 MG/ML VIAL IVP PRN (20:38)
--- NOTE | 2020-11-07 20:38 | NUR ---
Pt moving about in bed with right leg extended in the air. Ativan 1 mg given IVP.
--- NOTE | 2020-11-07 21:00 | NUR ---
Pt had large soft brown BM. Pt cleaned, linens changed and clean gown applied. CHG bath given.
[2020-11-07] MEDS ORDERED: NON-FORMULARY MEDICATION (Apixaban (Eliquis) 5 MG) GT SCH (23:15)
[2020-11-07] MEDS ORDERED: VALPROIC ACID 250 MG PO SCH (23:15)
--- NOTE | 2020-11-07 23:30 | NUR ---
Pt grimmacing and squirming about in bed. Soft wrist restraints remain in place. Morphine 4 mg given IVP. VSS.
[2020-11-07] MEDS: MORPHINE 4 MG INJ. 4 MG/ML VIAL IVP PRN (23:32)
[2020-11-08] VITALS (13 sets, daily range): BP systolic 105–144
[2020-11-08] MEDS ORDERED: SERTRALINE HCL 50 MG TABLET ONE
[2020-11-08] MEDS: VALPROIC ACID 250 MG CAPSULE (DEPAKENE) PO SCH ×3 (00:23→20:14)
[2020-11-08] MEDS: IPRATROPIUM/ALBUTEROL SULFATE 3 ML AMPUL.NEB (DUONEB) INH SCH ×4 (02:30→20:18)
[2020-11-08] MEDS: INSULIN REGULAR, HUMAN 100 UNITS/ML, 10 ML VIAL (humuLIN R) SUBCUT PRN (06:52)
--- NOTE | 2020-11-08 07:20 | NUR ---
Pt report given to oncoming RN. Pt resting quietly with eyes closed. O2 at 2 LPM/NC. NS at KVO. Vital A/F 1.2 at 40 mL/hr to G-tube. F/C secure draining yellow urine with 1025 total U/O for the shift. VSS, NAD.
--- NOTE | 2020-11-08 07:43 | NUR ---
AM ROUNDS: PATIENT SLEEPING DURING ROUNDS.O2 2L/NC,GOOD SATURATION. IV F AT LEFT FOREARM TO TKO. TSANG DRAINING TO YELLOW URINE.TUBE FEEDS NOT RUNNING DURING ROUNDS. BREATHING TREATMENT ON GOING. NO ACUTE DISTRESS. CONTINUE TO MONITOR.SAFETY PRECAUTION RENDERED.
[2020-11-08] MEDS: ASPIRIN 81 MG TAB.CHEW GT SCH (08:24)
[2020-11-08] MEDS: SERTRALINE HCL 50 MG TABLET GT SCH ×3 (08:25→20:12)
[2020-11-08] MEDS: METOPROLOL TARTRATE 25 MG TABLET GT SCH ×2 (08:29→20:13)
[2020-11-08] MEDS: PANTOPRAZOLE SODIUM 40 MG/VIAL (PROTONIX) IVP SCH (08:30)
[2020-11-08] MEDS: levETIRAcetam 500 MG TABLET PO SCH ×2 (08:30→20:13)
[2020-11-08] MEDS: APIXABAN 2.5 MG TABLET GT SCH (08:30)
[2020-11-08] MEDS: ATORVASTATIN 20 MG TABLET GT SCH (08:30)
[2020-11-08] MEDS: ACETAMINOPHEN 325 MG TABLET GT SCH (08:37)
[2020-11-08] MEDS: NS IV SCH ×2 (09:38→17:38)
[2020-11-08] MEDS: CEFTAZIDIME IV SCH ×2 (09:38→17:38)
--- NOTE | 2020-11-08 09:45 | NUR ---
TRANSFER OUT TO [facility]: PATIENT TRANSFER OUT TO [facility] PER DR. PANDYA VIA BED.ATTACHED TO HEART MONITOR DURING TRANSPORT TO FLOOR.DOWNGRADE PATIENT TO TELEMETRY ORDERED. ENDORSED TO [facility] NURSE ALYX.PATIENT ON 2L/NC,GOOD SATURATION.IV TO TKO,IV ANTIBIOTICS ON GOING.TUBE FEED STOPPED DURING TRANSFER. TSANG IN PLACE. NO ACUTE DISTRESS.
--- NOTE | 2020-11-08 10:10 | NUR ---
CONTINUATION OF CARE PATIENT WAS DOWN GRADED FROM ICU TO TELE. PATIENT APPEARS TO BE RESTING BREATHING IS EQUAL AND NON LABORED. PATIENT HAS TSANG CATHETER DRAINING TO GRAVITY. PATIENT HAS TUBE FEEDING RUNNING PER ORDER. PATIENT IV IS INFUSING PER ORDER. PATIENT HAS ALL SAFETY PRECAUTIONS IN PLACE.E PATIENT IS ON SOFT WRIST RESTRAINTS. PATIENT HAS NO OTHER NEEDS AT THIS TIME. PATIENT IS CLOSE TO NURSES STATION.
--- NOTE | 2020-11-08 12:54 | NUR ---
ACCU CHECK DONE NO COVERAGE IS NEEDED. PATIENT IS AWAKE AND ALERT LAYING IN BED. PATIENT IS NON VERBAL, EYES OPEN NO SIGNS OF ANY DISTRESS, BREATHING IS EQUAL AND NON LABORED. PATIENT HAS ALL SAFETY AND SEIZURE PRECAUTIONS IN PLACE. PATIENT IS CLOSE TO NURSES STATION. NO OTHER NEEDS AT THIS TIME.
--- NOTE | 2020-11-08 15:00 | NUR ---
RN ROUNDING PATIENT APPEARS TO BE RESTING BREATHING IS EQUAL AND NON LABORED. PATIENT HAS ALL SAFETY AND SEIZURE PRECAUTIONS IN PLACE. NO OTHER NEEDS AT THIS TIME.
--- NOTE | 2020-11-08 17:44 | NUR ---
ACCU CHECK/ MEDICATION PATIENTS SCHEDULED MEDICATION GIVEN PER ORDER, PATIENT IS LAYING IN BED NO SIGNS OF ANY DISTRESS, BREATHING IS EQUAL AND NON LABORED. PATIENT HAS ALL SAFETY AND SEIZURE PRECAUTIONS IN PLACE. ACCU CHECK DONE NO COVERAGE NEEDED. PATIENT IS CLOSE TO NURSES STATION. NO OTHER NEEDS AT THIS TIME.
--- NOTE | 2020-11-08 17:49 | NUR ---
ATTENDING MD WALKER WAS PAGED RE: PT IS HAVING RASHES, ORDER FOR ANTIHISTAMINE, RENEW RESTRAINTS ORDER. SPOKE TO LEOBARDO.
--- NOTE | 2020-11-08 18:55 | NUR ---
rn closing note patient is awake and alert laying in bed starting to get agitated moving her legs out of bed. patient is confused and not understanding to keep legs in bed. patient has all safety and seizure precautions in place. patient is close to nurses station. patient shows no signs of and distress, breathing is equal and non labored. spoke with md and received orders for restraints and benadryl. patient has no other needs at this time.
--- NOTE | 2020-11-08 19:30 | NUR ---
OPENING NOTE RECEIVED CARE OF PT AND SBAR REPORT. PT IS AAOX0, NONVERBAL, RESTLESS IN BED AT THIS TIME. PT RAISING HER LEGS OVER THE RAILING, PT REPOSITIONED FOR SAFETY. PT IS BREATHING TO O2 VIA NC AT 2L. WET LUNG SOUNDS NOTED WITH UNPRODUCTIVE COUGH. PT IS ON TUBEFEEDING AT 40 ML/HR. ASPIRATION PRECAUTIONS ARE IN PLACE. SEIZURE PRECAUTIONS MAINTAINED, PADDED SIDE RAILS ARE IN PLACE. TSANG CATHETER IS INTACT AND DRAINING TO GRAVITY. BILATERAL SOFT WRIST RESTRAINTS ARE IN PLACE, NO S/S OF IMPAIRED CIRCULATION NOTED. SAFETY AND FALL PRECAUTIONS ARE IN PLACE. BED IS LOCKED IN THE LOWEST POSITION, SIDE RAILS UP, CALL LIGHT WITHIN REACH, CLOSE TO NURSES STATION. WILL MONITOR.
[2020-11-08] MEDS: FAMOTIDINE 20 MG TABLET PO SCH (20:14)
[2020-11-08] MEDS: risperiDONE 1 MG TABLET (RisperDAL) GT SCH (20:14)
--- NOTE | 2020-11-08 20:40 | NUR ---
DR. DENISE BURLESON PT SEEN AND EXAMINED.
[2020-11-08] MEDS ORDERED: NON-FORMULARY MEDICATION (Famotidine 20 MG) GT SCH (21:00)
[2020-11-09] MEDS: CEFTAZIDIME IV SCH ×3 (00:02→18:02)
[2020-11-09] MEDS: NS IV SCH ×3 (00:02→18:02)
[2020-11-09] MEDS: INSULIN REGULAR, HUMAN 100 UNITS/ML, 10 ML VIAL (humuLIN R) SUBCUT PRN ×3 (00:05→17:58)
[2020-11-09] MEDS: IPRATROPIUM/ALBUTEROL SULFATE 3 ML AMPUL.NEB (DUONEB) INH SCH ×7 (00:18→23:21)
--- NOTE | 2020-11-09 00:30 | NUR ---
PT LAYING IN BED RAISING LEGS IN AIR AND OVER SIDE RAIL PT IS A G-TUBE KEEPS SLIDING DOWN IN BED PT IS NOT ALERT AND DOES NOT UNDERSTAND REDIRECTION. PT HAS BEEN MOVED UP IN BED MULTIPLE TIMES RN AND CHARGE AWARE
[2020-11-09 00:36] VITALS: BP_SYST 137
[2020-11-09] MEDS: LORazepam 2 MG/ML VIAL IVP PRN (00:53)
--- NOTE | 2020-11-09 06:10 | NUR ---
CLOSING NOTE PT IS AAOX0, NONVERBAL, RESTLESS IN BED AT THIS TIME. PT CONTINUES RAISING HER LEGS OVER THE RAILING, PT REPOSITIONED FOR SAFETY THROUGHOUT SHIFT. PT IS BREATHING TO O2 VIA NC AT 2L. WET LUNG SOUNDS NOTED WITH UNPRODUCTIVE COUGH, BREATHING TREATMENTS ADMINISTERED THROUGHOUT SHIFT. PT IS ON TUBE FEEDING AT 40 ML/HR. ASPIRATION PRECAUTIONS ARE IN PLACE. SEIZURE PRECAUTIONS MAINTAINED, PADDED SIDE RAILS ARE IN PLACE. TSANG CATHETER IS INTACT AND DRAINING TO GRAVITY. BILATERAL SOFT WRIST RESTRAINTS ARE IN PLACE, NO S/S OF IMPAIRED CIRCULATION NOTED. SAFETY AND FALL PRECAUTIONS ARE IN PLACE. BED IS LOCKED IN THE LOWEST POSITION, SIDE RAILS UP, CALL LIGHT WITHIN REACH, CLOSE TO NURSES STATION. WILL CONTINUE TO MONITOR UNTIL PT CARE IS ENDORSED TO DAY SHIFT RN.
[2020-11-09 07:52] VITALS: BP_SYST 140
--- NOTE | 2020-11-09 08:00 | NUR ---
Rounded on patient, VS obtained, repositioned and bed changed. Restraints monitored, gtube, gipson catheter and IV in place.
[2020-11-09] MEDS: PANTOPRAZOLE SODIUM 40 MG/VIAL (PROTONIX) IVP SCH (08:42)
[2020-11-09] MEDS: ASPIRIN 81 MG TAB.CHEW GT SCH (08:45)
[2020-11-09] MEDS: APIXABAN 2.5 MG TABLET GT SCH (08:45)
[2020-11-09] MEDS: ACETAMINOPHEN 325 MG TABLET GT SCH (08:46)
[2020-11-09] MEDS: VALPROIC ACID 250 MG CAPSULE (DEPAKENE) PO SCH ×2 (08:47→21:42)
[2020-11-09] MEDS: ATORVASTATIN 20 MG TABLET GT SCH (08:48)
[2020-11-09] MEDS: levETIRAcetam 500 MG TABLET PO SCH ×2 (08:48→21:43)
[2020-11-09] MEDS: SERTRALINE HCL 50 MG TABLET GT SCH ×2 (08:49→21:43)
[2020-11-09] MEDS: METOPROLOL TARTRATE 25 MG TABLET GT SCH ×2 (08:50→21:44)
[2020-11-09 11:40] VITALS: BP_SYST 158
[2020-11-09 11:51] VITALS: BP_SYST 158
--- NOTE | 2020-11-09 12:00 | NUR ---
ROUNDED ON PATIENT, REPOSITIONED , VS AND BS OBTAINED.
[2020-11-09 15:51] VITALS: BP_SYST 144
--- NOTE | 2020-11-09 18:21 | NUR ---
PT EXAMINED AND ASSESSED. THIS RN CONCUR WITH TRISH GARCIA'S ASSESSMENT OF PATIENT.
[2020-11-09 20:30] VITALS: BP_SYST 141
--- NOTE | 2020-11-09 20:30 | NUR ---
OPENING NOTES: Received report from TRISH Stacy and Antwon CURTIS. Patient resting in bed, nonverbal, breathing evenly and unlabored on 2L of oxygen via nasal cannula. Patient has an IV on the left AC 18g saline lock, flushed patent and benign, no signs and symptoms of infiltration at this time. Patient has a g tube feeding running. Patient tolerating it well. Patient has a FC secured, draining by gravity. Vital signs within normal limits. Patient has bilateral wrist restraints for attempting to get out of bed and pulling/removing lines. Patient has seizure pads in place. Educated patient on plan of care, fall/safety/aspiration/seizure precautions, call light system. Patient unable to state understanding due to cognitive limitations. Bed is locked, armed, and kept at lowest position, 30 degrees. Will continue to monitor.
[2020-11-09] MEDS: risperiDONE 1 MG TABLET (RisperDAL) GT SCH (21:42)
[2020-11-09] MEDS: FAMOTIDINE 20 MG TABLET PO SCH (21:44)
[2020-11-10] VITALS (7 sets, daily range): BP systolic 113–152
[2020-11-10] MEDS: CEFTAZIDIME IV SCH ×3 (01:58→17:46)
[2020-11-10] MEDS: INSULIN REGULAR, HUMAN 100 UNITS/ML, 10 ML VIAL (humuLIN R) SUBCUT PRN ×4 (01:58→17:53)
[2020-11-10] MEDS: NS IV SCH ×3 (01:58→17:46)
[2020-11-10] MEDS: DIPHENHYDRAMINE INJ 50 MG/ML VIAL IM PRN ×2 (01:59→21:47)
[2020-11-10] MEDS: IPRATROPIUM/ALBUTEROL SULFATE 3 ML AMPUL.NEB (DUONEB) INH SCH ×5 (03:41→19:14)
--- NOTE | 2020-11-10 06:30 | NUR ---
CLOSING NOTES: Patient resting in bed, eyes closed, breathing evenly and unlabored on 2L of oxygen via nasal cannula. Medications were given when due. Patient tolerated them well. BS was checked when due. Coverage was needed and given at both times. Patient was given prn Benadryl for itching at 01:59. Patient remains on restraints due to kicking, attempting to pull lines/tubes. Hygiene care was done earlier. No s/s of distress at this time. No other needs at this time. Needs met throughout the shift. Fall/safety/aspiration/seizure precautions, will endorse care to morning shift RN.
--- NOTE | 2020-11-10 08:22 | NUR ---
opening note morning rounding on pt, pt in bed, confused, a/o X 0. vital signs obtained, repositioned and restraints checked. gipson cath, gtube and iv intact. pt gtube feeding running @ 40ml/hr. will continue to round.
[2020-11-10] MEDS: PANTOPRAZOLE SODIUM 40 MG/VIAL (PROTONIX) IVP SCH (09:04)
[2020-11-10] MEDS: VALPROIC ACID 250 MG CAPSULE (DEPAKENE) PO SCH ×2 (09:23→21:10)
[2020-11-10] MEDS: SERTRALINE HCL 50 MG TABLET GT SCH ×2 (09:24→21:09)
[2020-11-10] MEDS: ASPIRIN 81 MG TAB.CHEW GT SCH (09:24)
[2020-11-10] MEDS: METOPROLOL TARTRATE 25 MG TABLET GT SCH ×2 (09:24→21:12)
[2020-11-10] MEDS: ATORVASTATIN 20 MG TABLET GT SCH (09:25)
[2020-11-10] MEDS: levETIRAcetam 500 MG TABLET PO SCH ×2 (09:25→21:09)
[2020-11-10] MEDS: ACETAMINOPHEN 325 MG TABLET GT SCH (09:26)
[2020-11-10] MEDS: APIXABAN 2.5 MG TABLET GT SCH (09:29)
--- NOTE | 2020-11-10 11:30 | NUR ---
PT EXAMINED AND ASSESSED. THIS RN CONCUR WITH TRISH GARCIA'S ASSESSMENT OF PATIENT.
--- NOTE | 2020-11-10 12:00 | NUR ---
PT ROUNDING PT SITTING IN BED, TSANG CATH, IV, GTUBE IN PLACE. VS AND BS OBTAINED, INSULIN GIVEN. PT REPOSITIONED AND RESTRAINTS MONITORED.
--- NOTE | 2020-11-10 14:00 | NUR ---
ROUNDING NOTE PT MOVED TO ROOM 132B, SITTER AT BEDSIDE, RESTRAINTS TO BE REMOVED.
--- NOTE | 2020-11-10 16:26 | NUR ---
patient rounding patient found sleeping in bed with sitter at bedside. Restraints removed at 1530, gtube, gipson cath and iv in place. patient O2 saturation 95% on 2Lt NC and patient repositioned.
--- NOTE | 2020-11-10 18:00 | NUR ---
ROUNDING NOTE PATIENT LYING IN BED WITH SITTER AT BEDSIDE. TSANG CATH , GTUBE AND IV IN PLACE, KATE CARE PROVIDED, PT TURNED AND REPOSITIONED. ACCU CHECK OBTAINED, INSULIN ADMINISTERED AND GTUBE FLUSHED. PT SLEEPING, O2 SAT @ 99% ON 2LT NC, BED AT 30 DEGREE.
--- NOTE | 2020-11-10 19:02 | NUR ---
CLOSING NOTE PATIENT SLEEPING IN BED, GTUBE, TSANG CATH AND IV IN PLACE. HOB ELEVATED TO 30 DEGREES, PT REPOSITIONED AND SUPPORTED WITH PILLOW. REPORT GIVEN TO CEMENT BASED MATERIALS PUMP TENDER.
--- NOTE | 2020-11-10 19:30 | NUR ---
Opening Note: Received report from samson RN. Patient resting in bed, nonverbal, breathing evenly and unlabored on 2L of oxygen via nasal cannula. Patient has an IV on the left AC 18g saline lock, flushed patent and benign, no signs and symptoms of infiltration at this time. Patient has a g tube feeding running. Patient tolerating it well. Patient has a FC secured, draining by gravity. Patient has seizure pads in place. Educated patient on plan of care, fall/safety/aspiration/seizure precautions, call light system. Patient unable to state understanding due to cognitive limitations. Bed is locked, armed, and kept at lowest position, 30 degrees. Will continue to monitor.
[2020-11-10] MEDS: FAMOTIDINE 20 MG TABLET PO SCH (21:10)
[2020-11-10] MEDS: risperiDONE 1 MG TABLET (RisperDAL) GT SCH (21:14)
[2020-11-11] VITALS: BP_SYST 140
--- NOTE | 2020-11-11 | NUR ---
removed pt's O2 , saturation 99% room air will monitor pt with nasal cannula off.
--- NOTE | 2020-11-11 01:05 | NUR ---
RT at bedside suctioning patient Pt had some blood-tinged mucous , nasopharangeal suctioning as well as oral suctioning.
[2020-11-11] MEDS: CEFTAZIDIME IV SCH ×3 (01:12→17:44)
[2020-11-11] MEDS: NS IV SCH ×3 (01:12→17:44)
[2020-11-11] MEDS: IPRATROPIUM/ALBUTEROL SULFATE 3 ML AMPUL.NEB (DUONEB) INH SCH ×7 (01:14→23:20)
[2020-11-11] MEDS: INSULIN REGULAR, HUMAN 100 UNITS/ML, 10 ML VIAL (humuLIN R) SUBCUT PRN ×2 (01:31→11:42)
[2020-11-11] MEDS: MORPHINE 4 MG INJ. 4 MG/ML VIAL IVP PRN (01:35)
--- NOTE | 2020-11-11 02:13 | NUR ---
pt tolerating room air saturation 95-100% room air
--- NOTE | 2020-11-11 07:45 | NUR ---
AM ROUNDS: ENDORSEMENT RECEIVED FROM NIGHT NURSE DYLAN.PATIENT SLEEPING DURING ROUNDS.NON-LABORED. TUBE FEEDS ON GOING. IV TO TKO @ LEFT FOREARM INTACT. BEDREST.RASH ALL OVER THE BODY.DRY/INTACT. MOVES A LOT.BED LOCKED AT LOWEST POSITION. STABLE THIS TIME.
[2020-11-11 08:45] VITALS: BP_SYST 113
[2020-11-11] MEDS: PANTOPRAZOLE SODIUM 40 MG/VIAL (PROTONIX) IVP SCH (09:06)
[2020-11-11] MEDS: VALPROIC ACID 250 MG CAPSULE (DEPAKENE) PO SCH ×2 (09:07→21:47)
[2020-11-11] MEDS: ASPIRIN 81 MG TAB.CHEW GT SCH (09:07)
[2020-11-11] MEDS: levETIRAcetam 500 MG TABLET PO SCH ×2 (09:07→21:46)
[2020-11-11] MEDS: ATORVASTATIN 20 MG TABLET GT SCH (09:07)
[2020-11-11] MEDS: APIXABAN 2.5 MG TABLET GT SCH (09:08)
[2020-11-11] MEDS: SERTRALINE HCL 50 MG TABLET GT SCH ×2 (09:08→21:47)
[2020-11-11] MEDS: METOPROLOL TARTRATE 25 MG TABLET GT SCH ×2 (09:09→21:48)
[2020-11-11] MEDS: ACETAMINOPHEN 325 MG TABLET GT SCH (09:22)
[2020-11-11 12:00] VITALS: BP_SYST 115
--- NOTE | 2020-11-11 12:28 | NUR ---
CALLED: SPOKE WITH DR WALKER,REQUESTING PT TO BE TRANSFERRED TO [facility]. SPOKE WITH [employer] DUAL RATE SUPERVISOR JAYA PATIENT DOES NOT QUALIFY [facility] TRANSFER AND SHE WILL TALK TO DR WALKER REGARDING THIS AND [employer] OFFICER EMILY WAS INFORMED.
--- NOTE | 2020-11-11 12:58 | NUR ---
Nutrition F/U RD reviewed pt's current EMR record including diet Hx, physician notes, nursing notes, pertinent labs/meds/procedures, care trends, and care activity. Admission Dx: Altered Mental Status Pt w/: altered level of consciousness, Possibly aspiration pneumonia, Leukocytosis, Underlying history of schizophrenia, Septicemia, most likely 2/2 aspiration pneumonia, Acute exacerbation of COPD per Pulmonary Consult notes. PMH: History of Psych problems, DM, Dementia, GERD, COPD, Seizure, Bipolar disorder, Paranoid schizophrenia, Depression, Cardiomyopathy, Dyslipidemia. SARS-CoV-2 Ag Rapid 11/03 Negative; PCR 11/04 Negative Current Diet Order/Nutrition Support: Vital AF 1.2 at 40 ml/hr, Free Water Flush: 150 ML Q6H via GT 7 days Subjective Info: Pt was seen at bedside, EN infusing as ordered. Per EMR review, pt was transferred out of ICU on 11/09, S/P extubation, now tolerating NC. Pt is confused and aphasic. Abdomen is soft and nondistended w/ active bowel sounds. Last BM 11/08, x2. EN rate: 40ml (11/10), GRV: 0ml, 10ml (11/10). David scale: 13, pt was seen by behavioral intervention specialist for re-eval on 11/07: 1. Left Anterior Lateral Forehead: Laceration, present on admission. 2. Left Heel: Blanchable redness. 3. Right Heel: Blanchable redness. 4. General Body: trunk and bilateral lower extremities have a generalized maculopapular rash. Per RN notes, 1+ non-pitting edema to bilateral hand and generalized. RD noted elevated Na+, and pt may benefit from increasing water flushes. Current EN regimen remains adequate and appropriate. Pertinent Medications: lopressor, liptor, protonix IV, lovenox, pepcid, Eliquis, Keppra, SSI Pertinent Labs: 11/07 Na 148 H, K 3.6 WNL, BG 173 H, BUN 12 WNL, CRE 0.47 L Ht: 5'5"/65" Wt: 96#/44 kg (11/04) -- stable Body Mass Index: 15.97 kg/m2 %IBW: 77 [place]/Adjusted Body Weight: 125#/ 57kg Estimated Energy Expenditure (kcals/day) 3456-1305 kcal/day (25-30 kcal/kg IBW for wt gain promotion) Estimated Protein Required (g/day) 68gm (1.2 gm/kg IBW for wt gain promotion) Estimated Fluid Required (l/day) 1.4-1.7 L/day (25-30ml/kg IBW for Geriatric maintenance) Problem/Etiology/Signs/Symptoms Predicted suboptimal nutrient intake r/t current diet order AEB NPO status and a/w initiation of EN support. *resolved, now on EN support. Altered nutrition related labs r/t pathophysiological factors AEB elevated BG, infection and possible medication interaction. *ongoing Expected Outcomes/Goals Monitor EN support tolerance and intake w/ goal of pt meeting more than 80% of estimated nutritional needs, labs trending WNL, normal GI function, skin integrity/wt maintenance. Dietitian Recommendations * Recommend: increase water flush (elevated Na+). consider: 200ml Q6H via GT * Recommend continuing Vital AF 1.2 at 40 ml/hr via GT Provides: 1152 kcal/day, 72 gm protein/day, and 1578 ml free water/day Meets: 81% of estimated caloric needs and 106% of estimated protein needs Follow Up High Risk: F/U in 2-3 days
--- NOTE | 2020-11-11 13:03 | NUR ---
Dietitian Recommendations * Recommend: increase water flush (elevated Na+). consider: 200ml Q6H via GT * Recommend continuing Vital AF 1.2 at 40 ml/hr via GT Provides: 1152 kcal/day, 72 gm protein/day, and 1578 ml free water/day Meets: 81% of estimated caloric needs and 106% of estimated protein needs Please see nutrition F/U note for details. NURSING HOME, RD
--- NOTE | 2020-11-11 13:10 | NUR ---
CM note: faxed snf package and dc order to Nadine/Camryn [facility].
--- NOTE | 2020-11-11 14:41 | NUR ---
Received an order from Dr Hayes to or patient to [facility]-they are unable to assign a bed for the patient today because her bed hold is up, they will have to review and give a bed assignment tomorrow. It is a holiday so they cannot review until tomorrow.
[2020-11-11 16:00] VITALS: BP_SYST 120
--- NOTE | 2020-11-11 18:56 | NUR ---
END OF SHIFT: PATIENT FAST ASLEEP. TUBE FEEDS ON GOING. BED LOCKED AT LOWEST POSITION. IV TO TKO. TSANG IN PLACE ,WITH YELLOW URINE IN LARGE AMOUNT. NO ACUTE DISTRESS. WAITING FOR SNF REEVALUATION IN GOING BACK TO [facility].
--- NOTE | 2020-11-11 19:30 | NUR ---
Opening notes Received report. Patient is resting in bed, no signs of distress noted. Breathing even and unlabored on room air. IV patent and intact, no signs of infiltration noted. G-tube in place with feeding infusing. Zacarias catheter in place with yellow urine. Patient repositioned to comfort. No other needs at this time. Call light with the patient. Safety precautions in place.
[2020-11-11 20:00] VITALS: BP_SYST 145
[2020-11-11] MEDS: risperiDONE 1 MG TABLET (RisperDAL) GT SCH (21:47)
[2020-11-11] MEDS: FAMOTIDINE 20 MG TABLET PO SCH (21:47)
[2020-11-12] VITALS (8 sets, daily range): BP systolic 94–131
[2020-11-12] MEDS: CEFTAZIDIME IV SCH ×4 (00:50→23:53)
[2020-11-12] MEDS: DIPHENHYDRAMINE INJ 50 MG/ML VIAL IM PRN (00:50)
[2020-11-12] MEDS: NS IV SCH ×4 (00:50→23:53)
[2020-11-12] MEDS: INSULIN REGULAR, HUMAN 100 UNITS/ML, 10 ML VIAL (humuLIN R) SUBCUT PRN ×3 (00:58→23:53)
--- NOTE | 2020-11-12 01:00 | NUR ---
RN rounds Patient repositioned to comfort. Oral care provided. Patient tolerated well. No other needs. Call light with the patient. Safety precautions in place.
--- NOTE | 2020-11-12 07:04 | NUR ---
Closing notes Patient resting in bed, patient tries to roll in bed. Patient repositioned to comfort. No signs of distress noted. Breathing even and unlabored on room air. IV patent and intact, no signs of infiltration noted. All needs met throughout the shift. Call light with the patient. Safety precautions in place. Will endorse care to day shift RN.
[2020-11-12 07:08] LABS: BASOPHILS % (AUTO) 0.4 % (0.0-2.0); EOSINOPHILS # (AUTO) 0.5 K/uL (0.0-0.4); EOSINOPHILS % (AUTO) 10.3 % (0.0-4.0); HEMATOCRIT 31.5 % (36-48); HEMOGLOBIN 9.9 g/dL (12.0-16.0); LYMPHOCYTES % (AUTO) 38.6 % (20.5-51.5); MEAN CORPUSCULAR HEMOGLOBIN 27 pg (27-31); MEAN CORPUSCULAR HGB CONC 32 % (32-36); MEAN CORPUSCULAR VOLUME 86 fL (79.0-98.0); MONOCYTES # (AUTO) 0.6 K/uL (0.0-1.0); NEUTROPHILS # (AUTO) 2.1 K/uL (1.8-7.7); NEUTROPHILS % (AUTO) 39.7 % (40.0-70.0); PLATELET COUNT (AUTO) 331 K/uL (130-430); RED BLOOD CELL COUNT(AUTO) 3.64 MIL/uL (4.2-6.2); RED CELL DISTRIBUTION WIDTH 17.4 % (9.0-15.0); WHITE BLOOD COUNT (AUTO) 5.3 K/uL (4.8-10.8)
[2020-11-12] MEDS: IPRATROPIUM/ALBUTEROL SULFATE 3 ML AMPUL.NEB (DUONEB) INH SCH ×5 (07:21→23:30)
[2020-11-12 07:22] LABS: CALCIUM 9.1 mg/dL (8.4-11.0); CREATININE 0.65 mg/dL (0.55-1.30)
[2020-11-12] MEDS: LORazepam 2 MG/ML VIAL IVP PRN (07:50)
--- NOTE | 2020-11-12 08:00 | NUR ---
OPENING NOTES: PATIENT IN BED. RESTLESS AND CONFUSED. NO SIGNS OF ACUTE DISTRESS NOTED. BED LOCKED, ALARM ON AND IN LOWEST POSITION. FALL, SAFETY AND SEIZURE PRECAUTION REINFORCED. G TUBE AND IV INFUSING WELL. TSANG CATHETER SECURE AND DRAINING BY GRAVITY. CALL LIGHT WITHIN.
[2020-11-12] MEDS: VALPROIC ACID 250 MG CAPSULE (DEPAKENE) PO SCH ×2 (08:51→20:56)
[2020-11-12] MEDS: levETIRAcetam 500 MG TABLET PO SCH ×2 (08:51→20:55)
[2020-11-12] MEDS: PANTOPRAZOLE SODIUM 40 MG/VIAL (PROTONIX) IVP SCH (08:51)
[2020-11-12] MEDS: ASPIRIN 81 MG TAB.CHEW GT SCH (08:52)
[2020-11-12] MEDS: ATORVASTATIN 20 MG TABLET GT SCH (08:52)
[2020-11-12] MEDS: SERTRALINE HCL 50 MG TABLET GT SCH ×2 (08:52→20:56)
[2020-11-12] MEDS: ACETAMINOPHEN 325 MG TABLET GT SCH ×3 (08:53→11:33)
[2020-11-12] MEDS: METOPROLOL TARTRATE 25 MG TABLET GT SCH ×2 (08:53→20:59)
[2020-11-12] MEDS: APIXABAN 2.5 MG TABLET GT SCH (08:56)
--- NOTE | 2020-11-12 16:19 | NUR ---
[facility] will not accept patient back until the family pays back payments owed to them. They are trying to reach the family concerning this matter unsuccessfully. They will let us know when they can accept the patient.
--- NOTE | 2020-11-12 19:20 | NUR ---
CLOSING NOTES; PATIENT RESTING IN BED. NO SIGNS OF ACUTE DISTRESS NOTED. IV PATENT WITH NO SIGNS OF INFILTRATION. G TUBE SECURED AND INFUSING WELL. TSANG CATHETER IN PLACED AND DRAINING BY GRAVITY. FALL, SAFETY, ASPIRATION AND SEIZURE PRECAUTION REINFORCED. BED LOCKED, ALARM ON AND IN LOWEST POSITION. CALL LIGHT WITHIN REACH.
[2020-11-12] MEDS: risperiDONE 1 MG TABLET (RisperDAL) GT SCH (20:55)
[2020-11-12] MEDS: FAMOTIDINE 20 MG TABLET PO SCH (20:56)
--- NOTE | 2020-11-12 23:17 | NUR ---
OPENING NOTE PATIENT IS LYING IN BED RESTING AND ASLEEP. NO S/S OF RESPIRATORY DISTRESS. IV IS INTACT AND PATENT. FEEDING TUBE IS CLEAN AND PATENT WITH FEEDING RUNNING AT 40ML/HR. ASPIRATION, SEIZURE AND SAFETY PRECAUTIONS ARE IN PLACE. BED IS IN LOWEST POSITION WITH CALL LIGHT IN PLACE. Addendum: 11/13/20 at 0351 by Juana Macias RN AMEND..CORRECT TIME WAS 1929
[2020-11-13] VITALS: BP_SYST 112
[2020-11-13] MEDS: IPRATROPIUM/ALBUTEROL SULFATE 3 ML AMPUL.NEB (DUONEB) INH SCH ×2 (03:35→07:11)
[2020-11-13] MEDS: LORazepam 2 MG/ML VIAL IVP PRN (03:43)
--- NOTE | 2020-11-13 03:43 | NUR ---
ATIVAN PT VERY RESTLESS, ATTEMPTING TO TURN OVER IN BED AND KICK LEGS OVER SIDE RAILS. REDIRECTION UNSUCCESSFUL. ATIVAN GIVEN ORDERED PRN. WILL MONITOR.
--- NOTE | 2020-11-13 06:42 | NUR ---
CLOSING NOTE Patient is very restless and is attempting to get out of bed multiple times. Fall and safety precautions are in place. Bed is in lowest position. Will endorse to day shift RN.
[2020-11-13] MEDS: METOPROLOL TARTRATE 25 MG TABLET GT SCH (08:53)
[2020-11-13] MEDS: ATORVASTATIN 20 MG TABLET GT SCH (08:54)
[2020-11-13] MEDS: SERTRALINE HCL 50 MG TABLET GT SCH (08:54)
[2020-11-13] MEDS: VALPROIC ACID 250 MG CAPSULE (DEPAKENE) PO SCH (08:54)
[2020-11-13] MEDS: APIXABAN 2.5 MG TABLET GT SCH (08:55)
[2020-11-13] MEDS: ACETAMINOPHEN 325 MG TABLET GT SCH (08:56)
[2020-11-13] MEDS: PANTOPRAZOLE SODIUM 40 MG/VIAL (PROTONIX) IVP SCH (08:57)
[2020-11-13] MEDS: levETIRAcetam 500 MG TABLET PO SCH (08:57)
[2020-11-13] MEDS: ASPIRIN 81 MG TAB.CHEW GT SCH (08:57)
[2020-11-13] MEDS: CEFTAZIDIME IV SCH (09:23)
[2020-11-13] MEDS: NS IV SCH (09:23)
[2020-11-13 09:43] VITALS: BP_SYST 110
[2020-11-13 10:16] VITALS: BP_SYST 111
--- NOTE | 2020-11-13 11:30 | NUR ---
D/C Patient Given medication reconciliation form and D/C instructions to EMT. Exit Care provided. MD discussed with patient the results and treatment provided. Patient in stable condition, ID band removed. IV catheter remains in place for completion of antibiotics. Continued home and current meds as ordered.Patient educated on pain management. All belongings sent with patient. Discussed discharge with KIRSTEN Andrade at [place]
--- NOTE | 2020-11-13 11:41 | NUR ---
Patient accepted at [facility] room 214A. Number for report [phone]. [facility] to transport at 11AM Spoke w/ son Marques and left him a message of patient's transfer to [facility]. [phone]. discharge disposition [id number]
== END 2020-11-13 11:30 | DRG 871 ==
LOC: SED 14:56 → SIC 17:36 → STU 11-08 09:52
PROVIDERS: ADMIT Family Medicine; ATTEND Family Medicine
PROC: 5A1945Z Respiratory Ventilation, 24-96 Consecutive Hours (ICD-10-PCS; principal; 2020-11-03)
PROC: 4A10X4Z Monitoring of Central Nervous Electrical Activity, External Approach (ICD-10-PCS; 2020-11-04)
PROC: 0BH17EZ Insertion of Endotracheal Airway into Trachea, Via Natural or Artificial Opening (ICD-10-PCS; 2020-11-04)
DX: A41.9 Sepsis, unspecified organism (principal); J69.0 Pneumonitis due to inhalation of food and vomit; J96.01 Acute respiratory failure with hypoxia; I42.9 Cardiomyopathy, unspecified; J44.1 Chronic obstructive pulmonary disease with (acute) exacerbation; J44.0 Chronic obstructive pulmonary disease with (acute) lower respiratory infection; N39.0 Urinary tract infection, site not specified; F20.0 Paranoid schizophrenia; I50.20 Unspecified systolic (congestive) heart failure; F03.90 Unspecified dementia, unspecified severity, without behavioral disturbance, psychotic disturbance, mood disturbance, and anxiety; K21.9 Gastro-esophageal reflux disease without esophagitis; R13.10 Dysphagia, unspecified; I48.91 Unspecified atrial fibrillation; E78.5 Hyperlipidemia, unspecified; Z20.822 Contact with and (suspected) exposure to COVID-19; F31.9 Bipolar disorder, unspecified; S01.81XA Laceration without foreign body of other part of head, initial encounter; X58.XXXA Exposure to other specified factors, initial encounter; D64.9 Anemia, unspecified; F29 Unspecified psychosis not due to a substance or known physiological condition; E11.9 Type 2 diabetes mellitus without complications; I11.0 Hypertensive heart disease with heart failure; Z79.82 Long term (current) use of aspirin; Z79.899 Other long term (current) drug therapy; Z95.810 Presence of automatic (implantable) cardiac defibrillator; Y93.89 Activity, other specified; Y92.89 Other specified places as the place of occurrence of the external cause; Y99.8 Other external cause status
CPT/HCPCS: 36415; 36600; 70450-TC; 71045; 72125-TC; 73521; 76376; 80048; 80053; 80164; 80307; 81000; 82009; 82140; 82550; 82803-TC; 82962; 83605; 83880; 84484; 85025; 85610-TC; 85730-TC; 86140; 87040-TC; 87070-TC; 87081; 87086; 87205-TC; 90715; 93005; 94002; 94003; 94640; 94760; 95816; 96365; 96368; 99285; C9113; G0378; G0480; G0481; G0482; J0461; J0713; J1200; J1650; J1815; J2060; J2270; J2310; J2543; J2704; J3370; J3490; U0003

== ENCOUNTER 2021-06-09 14:39 | Emergency (ER) | payer OTHER, MEDICAID, SELFPAY ==
[~2021-06-09] VITALS: Ht 152.4 cm; Wt 52.6 kg
--- NOTE | 2021-06-09 14:40 | NUR ---
Dr Guevara evaluating patient in the hallway
--- NOTE | 2021-06-09 14:40 | NUR ---
Pt brought by ambulance, A&Ox1, pt presents to ER for G-tube placement 18 size , VSS, respirations even and unlabored, cap refill <3.
[2021-06-09 15:28] VITALS: BP_SYST 138
[2021-06-09 15:45] VITALS: BP_SYST 138
--- NOTE | 2021-06-09 15:45 | NUR ---
Patient and EMS given written and verbal instructions and verbalizes understanding. ER MD discussed with patient and EMS the results and treatment provided. Patient in stable condition. ID arm band removed. No Rx given. Pain Scale 0/10. EMS did not wait for paper work Opportunity for questions provided and answered. Medication side effect fact sheet provided.
--- NOTE | 2021-06-09 15:45 | NUR ---
Note osiris in EDM - 06/09/21 at 1843 by [email or web address] Patient given written and verbal discharge instructions and verbalizes understanding. ER discussed with patient the results and treatment provided. Patient in stable condition. ID arm band removed. No Rx given. Patient educated on pain management and to follow up with PMD. Pain Scale 0/10. Opportunity for questions provided and answered. Medication side effect fact sheet provided.
[2021-06-09] MEDS ORDERED: GASTROGRAFIN 120 ML ONE (16:57)
== END 2021-06-09 15:45 ==
LOC: SED 14:39
DX: K94.23 Gastrostomy malfunction (principal); E11.9 Type 2 diabetes mellitus without complications; K21.9 Gastro-esophageal reflux disease without esophagitis; I10 Essential (primary) hypertension
CPT/HCPCS: 43762; 74240; 99284; Q9963; 99283